=== PATIENT | female | born 1955 | race Caucasian/White ===

== ENCOUNTER → 2025-09-02 09:15 | Outpatient (REF) | payer BC, SELFPAY | LOC: RAD 09:15 | PROVIDERS: ATTENDING PHYSICIAN Thoracic Surgery (Cardiothoracic Vascular Surgery); FAMILY PHYSICIAN Family Medicine | DX: I35.0 Nonrheumatic aortic (valve) stenosis (principal) | CPT/HCPCS: 74174; 75572; Q9967 ==

== ENCOUNTER 2025-10-01 05:01 | Inpatient (IN) | payer BC, SELFPAY ==
[2025-09-27 12:23] VITALS: BMI 33.5
[2025-09-27 13:22] LABS: Hematocrit 38.2 % (37.0-47.0); Hemoglobin 13.4 g/dL (12.0-16.0); Mean Corp Hgb Conc. 35.1 g/dL (33.0-37.0); Mean Corpuscular Volume 90.5 fL (81.0-99.0); Nucleated Red Blood Cells % 0 %; Platelet Count 202 10^3/uL (130-400); Red Cell Dist. Width 11.8 % (11.5-14.5)
--- NOTE | 2025-09-27 13:23 | CM ---
Chart reviewed. Met with the patient in PAT. Reviewed preoperative and postoperative instructions and restrictions, along with showering guidelines. Gave patient 2 soaps. Patient is independent of ADLS, lives alone in a split level, 4 JAMES
through the front, 0 JAMES to enter through the garage, 0 DME. Patient has 2 supportive daughters. Plan is for the patient to return home with CT Transitional RN. CM to follow
[2025-09-27 13:31] LABS: INR 1.06; PT 13.9 Sec (11.4-14.6)
[2025-09-27 13:32] LABS: APTT 27.5 Sec (23.4-35.0)
[2025-09-27 14:10] LABS: Glycohemoglobin (HgbA1c) 5.8 % (4.0-5.9)
[2025-09-27 14:19] LABS: Urine Character Clear (Clear)
[2025-09-27 14:23] LABS: ALT (SGPT) 19 U/L (0-35); AST (SGOT) 21 U/L (14-36); Albumin 4.8 g/dl (3.5-5.0); Alkaline Phosphatase 73 U/L (38-126); Blood Urea Nitrogen 23 mg/dl (7-17); Calcium 8.8 mg/dl (8.4-10.2); Carbon Dioxide 26 mmol/L (22-30); Chloride 100 mmol/L (98-107); Estimated Creatinine Clearance 81 ml/min; Glucose 91 mg/dl (70-99); Potassium 3.9 mmol/L (3.5-5.1); Sodium 132 mmol/L (135-145); Total Protein 7.7 g/dl (6.3-8.2); eGFR > 60.00
[2025-09-27 15:10] LABS: Urine Squamous Cell >30 /LPF (Few)
[2025-09-27 15:11] LABS: Urine Red Blood Cell 0-2 /HPF (0-2); Urine White Cell 0-2 /HPF (0-5)
--- NOTE | 2025-09-30 22:42 | W.PN.CT ---
Assessment / Plan
-
Assessment:
-S/P Initial right thoracotomy done anteriorly with poor exposure and so converted to mini sternotomy J to the right at the third intercostal space/ Right common femoral artery and vein cutdown/ Surgical aortic valve replacement [25 mm biological
valve/Debridement of large calcium bar onto anterior leaflet of the mitral valve/Reconstruction of chest wall with multiple rib plates and wires, by Dr. Fraire, 10/01/2025, pod#1
-Bicuspid aortic valve morphology with severe stenosis and heavy calcification onto the mitral valve anterior
-LVEF 70-75%, per intraop DANIEL
-HTN
-Osteoporosis
-Class 1 obesity (BMI 33.5)
-Former tobacco use (quit 40 yrs ago)
-Macular degeneration
-Sinus bradycardia
-Hyponatremia
-S/P R wrist fx repair
-S/P Tonsillectomy
-Acute postop blood loss/Anemia (stable without transfusion)
-Acute postop atelectasis
-Acute postop hypovolemia with subsequent hypervolemia
Plan:
-No major issues overnight. Hemodynamically and neurologically intact
-Pt was successfully extubated yesterday 10/01/25 @ 1530
-Weaned off Levophed and Cardene gtt overnight, on insulin gtt per protocol. LR gtt @ 50 ml/hr discontinued @ 0500
-Last CI , MVO2 , U/O since OR mL
-Monitor chest tube drainage: R pleural , Med . CxR this AM look clear on my assessment, F/U official report
-Held Amiodarone last night d/t HR 50's
-Will hold AM dose of BB d/t bradycardia and postop hypotension
-Cont. current meds (ASA, Protonix )
-Mag oxide is 2.7, will hold mag oxide
-D/C'd swan and a-line this AM @ 0430
-Will d/c escoto catheter this AM @ 0600
-Will D/C insulin gtt today per protocol
-Maintain cordis
-Maintain temporary PW
-Encourage use of IS
-Wean off O2 as tolerated
-OOB into chair/Ambulate
Subjective
-
Date of Service: September 30, 2025
Objective Data
-
Lab Results
09/27/25 12:17
09/27/25 12:17
PT 13.9 Sec (11.4-14.6) 09/27/25 12:17
INR 1.06 09/27/25 12:17
APTT 27.5 Sec (23.4-35.0) 09/27/25 12:17
[2025-10-01] VITALS (16 sets, daily range): BP systolic 80–154; BP diastolic 45–87; BMI 32.5
[2025-10-01] MEDS: PROTONIX 40 MG PO (05:35)
[2025-10-01] MEDS: MAGNESIUM OXIDE 400 MG PO (05:35)
[2025-10-01] MEDS: BACTROBAN 2% OINTMENT 1 APPLIC NASAL ×2 (05:35→20:22)
[2025-10-01] MEDS: LOPRESSOR 12.5 MG PO (05:39)
--- NOTE | 2025-10-01 05:47 | PTCARENOTE ---
admitted pt into CVICU room 2263. pt confirmed 2 showers at home. pt clipped and prepped for CVOR. wiped w/ CHG wipes. pre-op meds given. pre-op education provided. pt confirmed taking losartan 09/30/[address] PA aware.
--- NOTE | 2025-10-01 06:02 | W.CVOR.SURPR ---
CVOR Surgeon Immed Pre Op
-
I have examined this patient prior to performance of the scheduled procedure.
The patient's condition is unchanged from the time of the dictated/written History and
Physical and the patient is able to undergo the scheduled procedure.
SAVR (biological)
[2025-10-01 07:40] LABS: ACT+ - POC 123 Seconds (82-134)
[2025-10-01 07:51] LABS: Urine Character Clear (Clear)
[2025-10-01 08:10] LABS: Urine White Cell 0-2 /HPF (0-5)
[2025-10-01 08:49] LABS: ACT+ - POC 584 Seconds (82-134)
[2025-10-01 09:07] LABS: B.E. - POC 0.3 mmol/L; Glucose - POC 132 mg/dl (70-99); HCO3 - POC 25 mmol/L (21-28); Hematocrit - POC 32 % PCV (37-47); Hemodilution- POC No; Hemoglobin Calculated - POC 10.8; Ionized Calcium - POC 1.13 mmol/L (1.15-1.33); Lactate - POC 0.63 mmol/L (0.36-0.75); O2 Saturation %Calculated-POC 98.3 % (94-98); PCO2 - POC 40 mmHg (35-48); PO2 - POC 111 mmHg (83-108); POC Comment PRE; Potassium - POC 3.3 mmol/L (3.5-5.1); Sodium - POC 140 mmol/L (136-145); Specimen Type - POC Arterial; pH - POC 7.40 (7.35-7.45)
[2025-10-01 09:17] LABS: ACT+ - POC 496 Seconds (82-134)
[2025-10-01 09:34] LABS: ACT+ - POC 531 Seconds (82-134)
[2025-10-01 09:43] LABS: B.E. - POC 5.0 mmol/L; Glucose - POC 156 mg/dl (70-99); HCO3 - POC 29 mmol/L (21-28); Hematocrit - POC 28 % PCV (37-47); Hemodilution- POC Yes; Hemoglobin Calculated - POC 9.4; Ionized Calcium - POC 1.05 mmol/L (1.15-1.33); Lactate - POC 0.79 mmol/L (0.36-0.75); O2 Saturation %Calculated-POC 100.0 % (94-98); PCO2 - POC 38 mmHg (35-48); PO2 - POC 434 mmHg (83-108); POC Comment CPB; Potassium - POC 3.6 mmol/L (3.5-5.1); Sodium - POC 140 mmol/L (136-145); Specimen Type - POC Arterial; pH - POC 7.49 (7.35-7.45)
[2025-10-01 09:57] LABS: B.E. - POC 3.5 mmol/L; Glucose - POC 132 mg/dl (70-99); HCO3 - POC 29 mmol/L (21-28); Hematocrit - POC 31 % PCV (37-47); Hemodilution- POC Yes; Hemoglobin Calculated - POC 10.5; Ionized Calcium - POC 1.04 mmol/L (1.15-1.33); Lactate - POC 1.40 mmol/L (0.36-0.75); O2 Saturation %Calculated-POC 99.6 % (94-98); PCO2 - POC 44 mmHg (35-48); PO2 - POC 175 mmHg (83-108); POC Comment CPB; Potassium - POC 4.0 mmol/L (3.5-5.1); Sodium - POC 141 mmol/L (136-145); Specimen Type - POC Arterial; pH - POC 7.42 (7.35-7.45)
[2025-10-01 10:02] LABS: ACT+ - POC 520 Seconds (82-134)
--- NOTE | 2025-10-01 10:22 | CM ---
Patient in OR today, chart reviewed. CM following.
[2025-10-01 10:28] LABS: ACT+ - POC 527 Seconds (82-134)
[2025-10-01 10:48] LABS: B.E. - POC 3.6 mmol/L; Glucose - POC 136 mg/dl (70-99); HCO3 - POC 28 mmol/L (21-28); Hematocrit - POC 30 % PCV (37-47); Hemodilution- POC Yes; Hemoglobin Calculated - POC 10.3; Ionized Calcium - POC 1.05 mmol/L (1.15-1.33); Lactate - POC 2.39 mmol/L (0.36-0.75); O2 Saturation %Calculated-POC 99.9 % (94-98); PCO2 - POC 39 mmHg (35-48); PO2 - POC 237 mmHg (83-108); POC Comment WARM; Potassium - POC 4.7 mmol/L (3.5-5.1); Sodium - POC 141 mmol/L (136-145); Specimen Type - POC Arterial; pH - POC 7.46 (7.35-7.45)
[2025-10-01 10:54] LABS: ACT+ - POC 129 Seconds (82-134)
[2025-10-01 11:15] LABS: B.E. - POC 2.5 mmol/L; Glucose - POC 170 mg/dl (70-99); HCO3 - POC 27 mmol/L (21-28); Hematocrit - POC 29 % PCV (37-47); Hemodilution- POC Yes; Hemoglobin Calculated - POC 9.7; Ionized Calcium - POC 1.20 mmol/L (1.15-1.33); Lactate - POC 1.56 mmol/L (0.36-0.75); O2 Saturation %Calculated-POC 98.0 % (94-98); PCO2 - POC 38 mmHg (35-48); PO2 - POC 99 mmHg (83-108); Potassium - POC 3.5 mmol/L (3.5-5.1); Sodium - POC 139 mmol/L (136-145); Specimen Type - POC Arterial; pH - POC 7.45 (7.35-7.45)
--- NOTE | 2025-10-01 11:21 | CON.INTV ---
Consultation
Consultation Request
Date/Time Consultation Requested: 10/01/2025 - 1055
Date/Time Consultation Performed: 10/01/2025 - 1116
Requesting Provider: REZA Herring
Performing Provider: Dr. Rodriguez
Reason for Consultation: s/p SAVR
Medical History
-
Chief Complaint: Elective SAVR
History of Present Illness:
69-year-old female with a past medical history of severe aortic valve stenosis who presents with elective surgical aortic valve replacement. Patient known to CT surgery service with last visit on 09/12/[address] Fraire. Her case was discussed at
a structural heart meeting and given her severe aortic valve stenosis with bicuspid valve morphology, an operative intervention is ideal. Recent echo performed on 08/21/2025 showed preserved LVEF at 60-65% with severe aortic valve stenosis with GABRIELLE
0.83 cm� with peak aortic valve gradient of 73.2 mmHg, and mean gradient 48.5 mmHg. Patient was recommended to have surgical intervention and she agreed to this procedure. Today, patient underwent surgical aortic valve replacement with 25 mm
biological valve as well as debridement of large calcium bar onto anterior leaflet of mitral valve. Patient tolerated the procedure well and transferred to CVICU postoperatively. Cloud Engineer service consulted for additional
management/recommendations.
When I saw the patient, she was intubated on SIMV at 14/500/40%/5, with PIP 24 cmH2O, breathing at 14 breaths/min with VTe 463 mL. Current heart rate 63, BP 106/55 via left radial A-line, PAP 27/15, saturating 96% and CO/CI: 3.08/1.66,
respectively. Currently on insulin drip at 2.6 units/hr. She has a mediastinal chest tube x 1 and right pleural chest tube x 1.
PMHx: Hypertension, osteoporosis, severe aortic stenosis, macular degeneration, obesity
PSHx: Right wrist fracture repair, tonsillectomy
Past Medical History
Past Medical History: Other (Above as per HPI)
Past Surgical History: Other (Above as per HPI)
Social History
Tobacco: Former Smoker (Quit >40 years ago)
Alcohol: None
Drug: None
Employment: Retired
Family History
Family History: Cancer (Father: Lung cancer; Sister: Breast cancer), Hypertension (Mother) and Other (Mother: History of CHF; Sister: A-fib)
Allergies / Home Medications
Allergies
Allergy/AdvReac Type Severity Reaction Status Date / Time
No Known Allergies Allergy Verified 09/25/25 12:26
Home Medications
�Medication �Instructions �Recorded �Confirmed �Last Taken �Type
calcium 3 units PO DAILY gummies 09/25/25 10/01/25 09/30/25 08:00 History
cholecalciferol (vitamin D3) 50 50 mcg PO DAILY Supplement 09/25/25 10/01/25 09/30/25 History
mcg (2,000 unit) tablet (Vitamin
D3)
hydrochlorothiazide 25 mg tablet 25 mg PO DAILY Blood Pressure 09/25/25 10/01/25 09/30/25 08:00 History
lorazepam 0.5 mg tablet 0.5 mg PO BID Mental Health/Anxiety 09/25/25 10/01/25 10/01/25 03:10 History
losartan 50 mg tablet 50 mg PO DAILY Blood Pressure 09/25/25 10/01/25 09/30/25 08:00 History
metoprolol tartrate 25 mg tablet 25 mg PO BID Blood Pressure 09/25/25 10/01/25 09/30/25 18:00 History
turmeric 3 unit PO DAILY gummies 09/25/25 10/01/25 08/31/25 History
vit C 250 mg-vit E 90 mg-zinc 40 1 tab PO BID Supplement 09/25/25 10/01/25 09/30/25 18:00 History
mg-copper 1 [id number]
capsule (PreserVision AREDS-2)
Review of Systems
-
Unable to Obtain full review of systems at this time due to: Patient Intubation
Vitals / Labs / Diagnostic Testing
Vital Signs
Temp Pulse Resp BP Pulse Ox
98.6 F 66 18 154/75 98
10/01/25 05:19 10/01/25 05:39 10/01/25 05:19 10/01/25 05:39 10/01/25 05:19
Microbiology
09/27/25 12:17 Nose MRSA Screen - Final
No Methicillin Resistant Staphylococcus aureus isolated.
Diagnostic Testing:
Physical Exam
-
HEENT: Normocephalic, Anicteric and Other (ETT in place)
Cardiovascular: S1/S2 and Peripheral Edema (negative)
Respiratory: Wheeze (negative), Rales (negative), Rhonchi (negative), Other (Mechanical breath sounds heard bilaterally) and Other (Mediastinal chest tube x 1+ right pleural chest tube x1)
GI: Soft, Non Distended, Non Tender and Normal Bowel Sounds
Neurology: Tremors (negative), Other (Sedated) and Other (Pupils +1 mm bilaterally)
Skin: Warm and Dry
General: Respiratory Distress (negative), Comfortable, Fever (negative) and Chills (negative)
Assessment
-
Assessment: 69-year-old female with a past medical history of severe aortic valve stenosis who presents with elective surgical aortic valve replacement. Patient known to CT surgery service with last visit on 09/12/[address] Fraire. Her case
was discussed at a structural heart meeting and given her severe aortic valve stenosis with bicuspid valve morphology, an operative intervention is ideal. Recent echo performed on 08/21/2025 showed preserved LVEF at 60-65% with severe aortic valve
stenosis with GABRIELLE 0.83 cm� with peak aortic valve gradient of 73.2 mmHg, and mean gradient 48.5 mmHg. Patient was recommended to have surgical intervention and she agreed to this procedure. On 10/01/2025, patient underwent surgical aortic valve
replacement with 25 mm biological valve as well as debridement of large calcium bar onto anterior leaflet of mitral valve. Patient tolerated the procedure well and transferred to CVICU postoperatively. Cloud Engineer service consulted for additional
management/recommendations.
Chronic conditions [employer] SU[employer]OCIATE: Hypertension, osteoporosis, severe aortic stenosis, macular degeneration, obesity
Impression:
#Severe aortic valve stenosis with bicuspid valve morphology s/p surgical aortic valve replacement with a 25 mm biological valve and debridement of large calcium bar onto anterior leaflet of mitral valve with chest wall reconstruction - POD #0
#Acute anemia due to above
#Hypocalcemia
#Hypertension
#Hyperglycemia (mild)
#History of osteoporosis
#History of macular degeneration
#Obesity (BMI: 32.5)
Plan:
Ventilator settings reviewed
FiO2 will be weaned to maintain SpO2 >90-94%
Minute ventilation will be adjusted
Arterial blood gases will be monitored
Spontaneous breathing trial will be attempted with hopeful extubation after anesthesia/sedation wear off
prn nebulized bronchodilators - not currently bronchospastic
Pulmonary artery catheter parameters will be followed
Pressors/antihypertensive/inotropes/diuretics will be provided as needed
Maintain MAP>65
Replete electrolytes with K>4, Mg>2
Monitor chest tube output (mediastinal chest tube x 1 and right pleural chest tube x 1)
Monitor hemoglobin
Monitor platelet count and coags
Transfuse blood products as needed to maintain Hb>7g/dL, plt>50k (given post-operative status)
CT surgery managing chest tubes
Monitor blood sugar to maintain euglycemia with goal BG 110-140; HbA1c: 5.8 on 09/27/2025
Insulin drip per protocol
Aspiration precautions
VAP prevention protocol
DVT prophylaxis
Early nutrition
Early mobilization
Critical care statement: A total of 43 minutes of critical care time was provided for this patient today. This includes management of ventilator, spontaneous breathing trial, arterial blood gases, pressors, of unstable vital signs, evaluation of the
patient at bedside, reviewing the patient's pertinent medical records including radiographs, microbiology, laboratory evaluations, and discussion with primary team and critical care nursing.
--- NOTE | 2025-10-01 11:47 | W.PN.CT.SURG ---
CT Surgery Operative Note
-
CARDIAC SURGERY OPERATIVE REPORT
Preoperative Diagnosis: Aortic valve stenosis with heavy calcification of bicuspid Valve morphology
Postoperative Diagnosis: Same
Procedure(s) Performed:
1. Initial right thoracotomy done anteriorly with poor exposure and so converted to mini sternotomy J to the right at the third intercostal space
2. Right common femoral artery and vein cutdown
3. Open Seldinger technique cannulation under DANIEL guidance
4. Surgical aortic valve replacement [25 mm biological valve
5. Debridement of large calcium bar onto anterior leaflet of the mitral valve
6. Reconstruction of chest wall with multiple rib plates and wires
7. Placement of temporary ventricular pacing wire
Date of Surgery: 10/01/2025
Comorbidities:
1. Bicuspid aortic valve morphology with severe stenosis and heavy calcification onto the mitral valve anterior
2. Hypertension
3. Osteoporosis
4. Macular degeneration
5. Obese with BMI of 32
Attending Surgeon: Alec Fraire MD, MS
Scrub and Circulating RNs: Jeannine Pimentel CT S Tech, Ten Dickerson, RN and Vin Choi RN
Assistants: Nyla Gallardo PA-C (exposure, retraction, suction), Brad Nunez MD (PGY2 resident, wound closure)
Anesthesiology: Flaco Oneill MD and Starr Alicea CRNA
Personnel Associate: Chucho Covington CCP
Anesthesia: GETA
EBL: per perfusion records
Products: None
CPB Time: 100 minutes
Aortic Cross Clamp Time: 58 minutes
Indication(s) for Procedures: This is a six 9-year-old female who is initially referred for TAVR consideration given her severe aortic valve stenosis. Her TAVR CT scan demonstrated bicuspid valve morphology as well as large calcium bar to extend
from the noncoronary cusp all way down through the annulus into the anteriorly for the mitral valve. Given her young age and low risk status, she is referred back for surgery as part of her lifetime management
Aortic Valve Description: Bicuspid aortic valve with left right effusion, large calcium bar that was down from the noncoronary cusps straight onto the anterior leaflet the mitral valve, left and right coronary ostia the normal anatomic positions.
Findings: Her left ventricular ejection fraction preoperatively was normal at 60% with no significant regional wall motion abnormalities. Following surgery her EF remained the same at 60% with no new regional wall motion abnormalities. I initially
attempted access via right thoracotomy at the third intercostal space done anteriorly and disarticulated the rib heads of the 2nd and 3rd ribs in order for exposure. Interestingly, although her CT scan demonstrated that her aorta was rightward he
is actually very far left underneath the sternum in vivo. Even performing a pericardiotomy with multiple stay sutures in order to pull the aorta towards the surgical field I felt it was not safe as it was poor exposure. I then abandoned this
technique and then converted to a mini upper sternotomy via a small incision. I then gained this towards the third intercostal space which was already exposed. The right internal mammary artery was also clipped multiple times for hemostasis. This
afforded much better exposure and the surgical aortic valve was implanted after resecting and debriding significant degree of calcium that extended onto the mitral valve. The field is then irrigated thoroughly. A total of 12 nonpledgeted 2
Ethibond sutures secured a [address]. There was a small gap between the core knots at the none right commissure and this was repaired with a 4-0 Prolene tied by hand. The aorta was closed in the usual fashion. At the conclusion
of the case, there was no significant paravalvular leak, and the intra valvular leak improved with blood pressure augmentation and by the end of the case there was a mean gradient 8 across the new surgical valve, normal leaflet excursion, and no
regurgitation. I then turned my attention to reconstructing the chest wall, after reapproximating the sternum I then used long plates with multiple screws in order to reapproximate the rib heads back to the anatomic positions. 19 Haitian Popeye
drains placed into the right hemithorax and a 24 Popeye drain into the pericardium. A single ventricular pacing wires placed at the base of the right ventricle earlier on in the case. She did not require any inotropic support, she maintained sinus
rhythm immediately after removing the cross-clamp, and she did not require any blood products.
Specimen(s): Aortic valve leaflets.
Prosthesis: 25 mm Chatterjee Insp[employer]'s Resilia aortic valve, serial #[id number], 2 long plates as well as multiple screws.
Description of Procedure: The patient was taken to the operating room. Their identity and procedure to be performed were verified and they were positioned supine on the operating table. Induction via general anesthesia with endotracheal intubation
was performed and central venous access and arterial monitoring were inserted. A preoperative transesophageal echocardiogram was performed to assess cardiac function and valvular function. The patient was then prepped and draped from chin to feet in
a sterile fashion. A preoperative time-out was performed with all members of the team present. I started with a small right common femoral artery exposure via a 2-1/2 to 3 cm incision after identifying the bifurcation with ultrasound. Pursestrings
were then placed onto the corresponding vein and artery. I then identified the second intercostal space then moved down 1 and entered via the third intercostal space anteriorly on the right. The second rib and third rib were disarticulated at the
rib heads using electrocautery and a soft tissue retractor was placed as well as a millimeter base of retractor. Full heparinization was given (a total of 55,000 units). Common femoral vein access was done under ultrasound guidance using open
Seldinger technique. Venous cannulation was done under DANIEL guidance. Both the artery and vein were accessed with serial dilations. The arterial cannula line had an appropriate bounce and correlating pressures with test dosing. The ACT was
confirmed to be over 400 and retrograde autologous priming was performed before commencing cardiopulmonary bypass. At this point a pericardiotomy was then created and multiple stay sutures were used to pull the pericardium over towards the incision
site at the right anterior thoracotomy. However there was still poor visualization of the ascending thoracic aorta and so I felt it was not safe to proceed to be at this access point. I then converted to a small upper midline incision and
performed a mini sternotomy down to the third intercostal space. This afforded much better exposure to the descending thoracic aorta. The pulmonary artery was away from the aorta to facilitate a clamp site and aortotomy. Next, a root
vent/antegrade cannula was inserted into the ascending aorta. Her anatomy was quite difficult for exposure and she had a very short stubby right superior pulmonary vein and so I elected to place a drop sucker once the aortotomy was performed for
exposure. The aortic cross-clamp was applied after decreasing the flow on the bypass and mean arterial pressure. A total of 1.2L initial dose of antegrade Del-Nido cardioplegia solution was given and planned for re-dosing every 75 minutes as
necessary. There was rapid electro-mechanical arrest of the heart at 400 cc of cardioplegia. The left ventricle was observed for distention on echocardiogram and manual palpation. Cold slush was placed into the pericardial well and cooled to 34
degrees centigrade.
Carbon dioxide was used to flood the field. We manually identified the location of the right coronary take off. An aortotomy was made approximately 2cm above the sinotubular junction. The location of both left and right coronary vessels were
visualized in the root.The leaflets were excised and sent for pathological assessment. The annulus was debrided of any calcium being mindful of the annulus and membranous septum. The root and left ventricular outflow tract were thoroughly irrigated
to remove any debris. A total of 12 Non-pledgeted 2-0 ethibond annular sutures were placed [id number] circumferentially. These were brought through the sewing cuff of the prosthetic valve which as then parachuted into place. The left and right
coronary ostia were visualized and were unobstructed by the valve. A Cor-Knot device was used to secure the annular sutures. I felt that there was too much of a gap between 2 of the core knot sutures towards the none right commissure and so 4-0
Prolene suture was placed here in order to obliterate that Which was hand tied the valve was inspected and was well seated. The aortotomy was approximated with 4-0 prolene in two layers. De-airing maneuvers were performed and temporary bipolar
ventricular pacing wires were placed on the base of the right ventricle. The patient was placed in a Trendelenburg position and flows on bypass were lowered. The aortic cross clamp was removed and flows were slowly brought back up. The aortotomy
appeared hemostatic. Transesophageal echocardiography revealed no paravalvular leak and appropriate prosthetic function. Once de-airing was satisfactory, the root vent was removed. After verifying acceptable parameters, we initiated weaning from
cardiopulmonary bypass. Once we were off cardiopulmonary bypass, the venous cannula was clamped and removed. The arterial line was then really located onto the venous line in order to return volume to the patient. Wires were then used to access
both the arterial and venous cannulas before cannulation or to maintain access. A test dose of protamine was administered and the patient was monitored for any adverse reaction before resuming protamine. Once half of the protamine dose was
delivered, pump suckers were turned off and the systolic blood pressure was lowered for aortic decannulation. The aortotomy suture line was inspected and hemostasis was confirmed. Mediastinal hemostasis was obtained. One 19Fr Popeye drain was placed
within the right pleural space and a 24 Haitian Popeye drain into the pericardial space. The sternum was approximated with 3 #7 single and the ribs were then reapproximated back onto the sternum over to the left side rib heads using long plates and
multiple screws. Fascia was approximated with #1 vicryl suture in an interrupted fashion. The subcutaneous, dermis and epidermis were closed in layers in a running fashion. The femoral cutdown was closed in multiple layers. The skin wound was
cleansed and dressed.
All instrument, sponge, and needle counts were confirmed to be correct x 2 at the end of the operation. The patient was transferred to the cardiac intensive care unit in critical but stable condition.
I, Dr. Alec Fraire, was present, scrubbed for, and performed all critical elements of this procedure.
Alec Fraire MD, MS
Cardiothoracic Surgeon
[facility]
This operative dictation was created using the [employer] dictation system. Please excuse any grammatical, typographical, or 'sound alike' errors
--- NOTE | 2025-10-01 11:58 | W.PN.CD ---
Addendum entered and electronically signed by Giovanny Ortega MD 10/01/25 17:39:
I saw and examined the patient independently and performed majority of MDM.
The FOURCHETTE SEWER's note was reviewed and I agree with the note with changes/additions below..
Comment: 69 yo female with PMH severe , HTN admitted for SAVR. s/p 25 mm Chatterjee Inspira's Resilia aortic valve by Dr. Fraire today. She is weaning from drips and vent. Exam with RRR, no murmurs, trace edema. EKG: sinus darius, prolonged QTc.
s/p bio-AVR. Plan will be ASA 81 mg daily.
Prolonged QTc. Suspect anesthesia effect. Repeat EKG in AM.
Original Note:
Today's Communication / Plan
-
Follow telemetry
Extubation per CT surgery
Impression / Plan
-
I/P: 69F with hypertension, hypercholesterolemia, obesity, nonobstructive CAD (trace in the ostium of the circumflex), and severe aortic stenosis presents for mini bio AVR. Given her young age and calcium pattern on her AV with bicuspid morphology
the plan was for SAVR versus TAVR.
Primary environmental health safety manager: Dr. Lomeli
Bicuspid aortic valve with severe stenosis s/p SAVR (25 mm Chatterjee Inspira's Resilia aortic valve) by Dr. Fraire on 10/01/2025
- Pre-LVEF 60% without RWMA, unchanged postop, MG 8 mmHg
- On Levophed
- EKG sinus bradycardia with prolonged QT, EKG in a.m.
- Antibiotic prophylaxis instructions during hospitalization
CAD, nonobstructive (trace in the ostium of the circumflex), LDL 131 in 2023, not on statin therapy
Hypertension, resume medical management as able postoperatively
Former tobacco use, full cessation recommended
SUBJECTIVE:
Operative notes reviewed. Intubated and sedated.
Physical Exam
Vital Signs/Labs
Vital Signs
Temp Pulse Resp BP Pulse Ox
98.6 F 66 18 154/75 98
10/01/25 05:19 10/01/25 05:39 10/01/25 05:19 10/01/25 05:39 10/01/25 05:19
09/30/25 10/01/25 10/02/25
06:59 06:59 06:59
Actual Weight 183 lb 10.321 oz
PT 13.9 Sec (11.4-14.6) 09/27/25 12:17
INR 1.06 09/27/25 12:17
APTT 27.5 Sec (23.4-35.0) 09/27/25 12:17
Physical Exam
Constitutional: No acute distress and Comfortable
EENT: Anicteric and Moist mucous membranes
Cardiovascular: Rhythm & rate is regular, Pedal edema is absent and S1S2 is normal
Respiratory: Lungs clear to auscul. and Other (Mechanical ventilation)
GI: Soft, Distention absent and Flat
Neuro/Psych: Other (Sedated)
Other: Skin (Warm and dry without edema)
Data Reviewed
-
Date of Service: October 01, 2025
EKG: Report Reviewed by me
Labs: Labs Reviewed by me
Old Records: Reviewed
[2025-10-01] MEDS: DILAUDID 0.5 MG IV ×2 (12:05→16:09)
--- NOTE | 2025-10-01 12:08 | W.PN.UPDATE ---
Update Note
Progress Note Update
69 y/o female presents elective for a AVR with Dr. Fraire
NEURO: sedated on precedex, pupils +4mm B/L
RESP: #8OT @26cm> 14/500/40/5 Lungs clear B/L. 2 mediastinal (20cc on arrival) and L pleural (0cc on arrival) chest tubes to -20cm suction. Sanguineous drainage
CV: RRR +S1, S2, no S3, no rub, no murmur. Dermabond to median sternotomy. RIJ w/[place]
ABD: round, soft, no BS
EXT: no edema, +2/4 DP pulses B/L, no femoral bruit, left radial A-line intact
: Lopez with clear yellow urine
A/P: POD #0 s/p Surgical aortic valve replacement [25 mm biological valve]
DANIEL: EF EF 70 to 75%
- wean and extubate
- Monitor CT and urine output
- Follow up labs and CXR
- Wean levophed for maps >65/SBP goal 90-110
>>can start cardene as needed for blood pressure management
- Will start ASA tonight
- EKG currently showing sinus bradycardia
- Cards consulted
- will need instruction regarding antibiotic prophylaxis for dental and invasive procedures
# acute surgical blood loss anemia-expected
- trend CBC
[2025-10-01] MEDS: VERSED 0.5 MG IV ×4 (12:09→12:54)
[2025-10-01 12:12] LABS: Glucose - Point of Care 136 mg/dl (70-99)
[2025-10-01 12:19] LABS: B.E. 3.0 mmol/L; HCO3 27.0 mmol/L (21-28); O2 Saturation % 98.5 % (94-98); PCO2 38 mmHg (32-35); PO2 89 mmHg (83-108); Potassium 4.0 mMOL/L (3.5-5.1); Sodium 137 mMOL/L (136-145)
[2025-10-01 12:29] LABS: INR 1.72; PT 20.3 Sec (11.4-14.6)
[2025-10-01 12:30] LABS: APTT 28.4 Sec (23.4-35.0)
[2025-10-01 12:31] LABS: Hematocrit 29.1 % (37.0-47.0); Hemoglobin 10.4 g/dL (12.0-16.0); Platelet Count 136 10^3/uL (130-400)
[2025-10-01 12:33] LABS: Blood Urea Nitrogen 20 mg/dl (7-17); Estimated Creatinine Clearance 80 ml/min; Glucose 123 mg/dl (70-99); Magnesium 2.7 mg/dl (1.6-2.3)
[2025-10-01] MEDS: DILAUDID 0.25 MG IV ×2 (12:38→18:14)
[2025-10-01] MEDS: CALCIUM GLUCONATE 100 IV (12:40)
[2025-10-01] MEDS: ANCEF 10 IV ×2 (12:41→12:42)
[2025-10-01] MEDS: NSS 500 IV (12:41)
[2025-10-01 13:05] LABS: Glucose - Point of Care 150 mg/dl (70-99)
--- NOTE | 2025-10-01 13:06 | PTCARENOTE ---
Patient received from [facility] at 1155; Sedated and intubated; SB with prolonged QT on monitor; VSS; Epicardial V wire present with settings VVI 50/10/0.8; +1 DP and radial pulses present; Lungs diminished at bases; ETT size 7.5 positioned and secured
at 25 cm at right lip - adjusted by CVNP Michelle C. at bedside to 23 cm at right lip following CXR; Ventilator settings SIMV 500/14/5/5 FiO2 40%; CTx2 to -20 cm wall suction draining bloody drainage - no air leak, tidaling, or crepitus noted;
Hypoactive BS; Lopez catheter in place draining clear, yellow urine; Sternal midline incision glued and approximated - CANDELARIO, Right chest incision glued and approximated - CANDELARIO; Left radial A-line in place, [place] Johnny present in CAJ Cordis at 45 cm -
all lines zeroed and leveled; PIVx1 - #20 RAC; Levo, insulin, and precedex infusing - see nursing flowsheets for further details; iCal repleted x1; IV Dilaudid and IV Versed given accordingly for pain; see nursing documentation for further details.
CO: 3.70
CI: 1.99
SVR: 1,297
[2025-10-01] MEDS: LR 250 ML IV ×3 (13:49→15:17)
[2025-10-01 14:05] LABS: Glucose - Point of Care 123 mg/dl (70-99)
--- NOTE | 2025-10-01 14:35 | PTCARENOTE ---
RT in room and patient placed on CPAP breathing trial. ABG's due at 1500
[2025-10-01 14:59] LABS: Glucose - Point of Care 91 mg/dl (70-99)
[2025-10-01 15:09] LABS: B.E. - POC 0.5 mmol/L; Blood Urea Nitrogen - POC 19 mg/dl (3-120); Chloride - POC 105 mmol/L (96-111); Creatinine - POC 0.80 mg/dl (0.3-1.0); Glucose - POC 77 mg/dl (70-99); HCO3 - POC 26 mmol/L (21-28); Hematocrit - POC 31 % PCV (37-47); Hemodilution- POC Yes; Hemoglobin Calculated - POC 10.6; Ionized Calcium - POC 1.29 mmol/L (1.15-1.33); Lactate - POC 1.51 mmol/L (0.36-0.75); O2 Saturation %Calculated-POC 92.7 % (94-98); PCO2 - POC 43 mmHg (35-48); PO2 - POC 67 mmHg (83-108); Potassium - POC 3.7 mmol/L (3.5-5.1); Sodium - POC 143 mmol/L (136-145); Specimen Type - POC Arterial; pH - POC 7.39 (7.35-7.45)
--- NOTE | 2025-10-01 15:23 | PTCARENOTE ---
EPOC ABG reviewed with YOEL Rapp; RT at bedside; Patient extubated at 1515 and placed on 6L NC
[2025-10-01] MEDS: OFIRMEV 100 IV (15:31)
[2025-10-01] MEDS: NEURONTIN PO ×2 (15:55→15:57)
[2025-10-01] MEDS: VITAMIN D3 (cholecalciferol) PO (15:56)
[2025-10-01] MEDS: TYLENOL PO (15:56)
[2025-10-01] MEDS: PACERONE PO (15:57)
--- NOTE | 2025-10-01 15:59 | RESPNOTE ---
pt extubated to 6L nasal cannula at 1515.
[2025-10-01 16:03] LABS: Glucose - Point of Care 80 mg/dl (70-99)
[2025-10-01 16:08] LABS: Hematocrit 29.9 % (37.0-47.0); Hemoglobin 10.5 g/dL (12.0-16.0); Platelet Count 140 10^3/uL (130-400)
[2025-10-01] MEDS: KCL 50 IV ×2 (17:03→18:07)
[2025-10-01] MEDS: ANCEF 5 IV (17:03)
[2025-10-01] MEDS: LOW STRENGTH ASPIRIN 81 MG PO (17:03)
[2025-10-01 17:04] LABS: Glucose - Point of Care 121 mg/dl (70-99)
[2025-10-01 18:06] LABS: Glucose - Point of Care 116 mg/dl (70-99)
[2025-10-01] MEDS: LR 1000 IV (18:08)
[2025-10-01] MEDS: ALBUMIN 5% 250 IV (18:15)
[2025-10-01 20:10] LABS: Glucose - Point of Care 86 mg/dl (70-99)
[2025-10-01] MEDS: CALCIUM GLUCONATE 130 MG IV (20:21)
[2025-10-01] MEDS: SENOKOT 8.6 MG PO (20:21)
[2025-10-01] MEDS: ROXICODONE 5 MG PO (20:21)
--- NOTE | 2025-10-01 20:57 | PTCARENOTE ---
Assumed care of pt from dayshift RN. Walking rounds completed. Pt AAOx4. FARNSWORTH. Appropriate. Sinus darius on the tele monitor. HR 50s. Temporary epicardial v-wire intact, box on, wire unplugged and wrapped around box. Settings as documented. BPs
stable, 90-100s/40-50s. Intermittent low dose levo. CVP ~2-6. PAPs 30s/10s. CI>2. Trace b/l LE edema. Palpable pulses throughout. Pt on 4 L NC. POX 95-97%. Mediastinal CT and R pleural CT intact, to -20 suction, no airleaks noted, and output
appropriate. Lung sounds audible and diminished in the bases. Abdomen round. +BSx4. Lopez catheter intact and draining yellow urine. All surgical sites stable, approximated, and CANDELARIO. Right IJ cordis w/ swan, left radial a-line, and PIV x1 intact.
All lines leveled/zeroed/flushed. 3g calcium gluconate - see MAR. Pt repositioned as documented. Glycemic protocol followed. Maintenance LR @50 ml/hr. See worklist for full nursing assessment and interventions. See MAR for pain medication
administration. Call mcmahon within reach.
[2025-10-01] MEDS: NEURONTIN 100 MG PO (21:42)
[2025-10-01] MEDS: TYLENOL 975 MG PO (21:42)
[2025-10-01 21:59] LABS: Glucose - Point of Care 116 mg/dl (70-99)
[2025-10-02] VITALS (24 sets, daily range): BP systolic 80–121; BP diastolic 43–84; PULSE 71; O2SAT 91–92; BMI 33.6
[2025-10-02 00:11] LABS: Glucose - Point of Care 93 mg/dl (70-99)
[2025-10-02] MEDS: ULTRAM 25 MG PO ×2 (00:15→06:48)
--- NOTE | 2025-10-02 00:20 | PTCARENOTE ---
Pt reassessed. Remains sinus darius on the tele monitor. HR high 50s. No change in v-wire. BPs 90-100/40s. Maps low - CT JUAN aware, titrate based on SBP's. CVP ~6. PAPs 30s/10s. CI>2. Pt on 4 L NC. POX 92-94%. Mediastinal CT/R pleural CT assessment
unchanged, output as documented. Lopez catheter intact and draining yellow urine. All lines leveled/zeroed/flushed. All surgical sites stable. Repositioned as documented. Glycemic protocol followed. LR maintenance fluids maintained. See MAR for pain
medication administration. Ultram added. Call mcmahon within reach.
[2025-10-02] MEDS: ANCEF 5 IV ×2 (01:04→09:56)
[2025-10-02 02:08] LABS: Glucose - Point of Care 101 mg/dl (70-99)
--- NOTE | 2025-10-02 03:37 | PTCARENOTE ---
No acute changes in assessment. Pt is sinus darius to sinus rhythm on the tele monitor. HR 50-60s. BP stable 90-110s/40-50s. CVP ~6. PAPs 30s/teens. CI>2. Pt on 4 L NC. POX 92-97%. Mediastinal CT and R pleural CT assessment unchanged, output
appropriate. Lopez catheter intact and draining yellow urine. All lines leveled/zeroed/flushed. Repositioned as documented. Labs drawn and sent. EKG complete. Pt states pain is under control at this time. Glycemic protocol followed. LR infusion
maintained. Call mcmahon within reach.
[2025-10-02 03:42] LABS: INR 1.31; PT 16.4 Sec (11.4-14.6)
--- NOTE | 2025-10-02 03:52 | W.PN.CT ---
Today's Communication / Plan
-
Plan:
-No major issues overnight. Hemodynamically and neurologically intact
-Pt was successfully extubated yesterday 10/01/25 @ 1530
-Weaned off Levophed and Cardene gtt overnight, on insulin gtt per protocol. LR gtt @ 50 ml/hr discontinued @ 0600
-Last CI 3.65, MVO2 65.1%, U/O since OR 925 mL
-Monitor chest tube drainage: R pleural 60/100, 1Med 120/235. CxR this AM look clear mild bibasilar atelectasis on my assessment, F/U official report
-Held Amiodarone last night d/t HR 50's. Will keep on hold today
-Will hold AM dose of BB d/t bradycardia and postop hypotension
-Cont. current meds (ASA, Protonix )
-D/C'd swan and a-line this AM @ 0500
-D/C escoto catheter this AM @ 0600
-Will D/C insulin gtt today per protocol
-Maintain cordis
-Maintain temporary PW
-Encourage use of IS
-Wean off O2 as tolerated
-OOB into chair/Ambulate
Assessment / Plan
-
Assessment:
-S/P Initial right thoracotomy done anteriorly with poor exposure and so converted to mini sternotomy J to the right at the third intercostal space/ Right common femoral artery and vein cutdown/ Surgical aortic valve replacement [25 mm biological
valve/Debridement of large calcium bar onto anterior leaflet of the mitral valve/Reconstruction of chest wall with multiple rib plates and wires, by Dr. Fraire, 10/01/2025, pod#1
-Bicuspid aortic valve morphology with severe stenosis and heavy calcification onto the mitral valve anterior
-LVEF 70-75%, per intraop DANIEL
-HTN
-Osteoporosis
-Class 1 obesity (BMI 33.5)
-Former tobacco use (quit 40 yrs ago)
-Macular degeneration
-Sinus bradycardia
-Hyponatremia
-S/P R wrist fx repair
-S/P Tonsillectomy
-Acute postop blood loss/Anemia (stable without transfusion)
-Acute postop thrombocytopenia (stable without active bleed)
-Acute postop atelectasis
-Acute postop hypovolemia with subsequent hypervolemia
Discussed patient care with: Cardiology, Nursing, Respiratory Therapy, Pharmacy and Care Team
Subjective
Procedure
S/P Initial right thoracotomy done anteriorly with poor exposure and so converted to mini sternotomy J to the right at the third intercostal space/ Right common femoral artery and vein cutdown/ Surgical aortic valve replacement [25 mm biological
valve/Debridement of large calcium bar onto anterior leaflet of the mitral valve/Reconstruction of chest wall with multiple rib plates and wires, by Dr. Fraire, 10/01/2025
-
Date of Service: October 02, 2025
Pt c/o incisional pain, otherwise feels well
Objective Data
-
PT 16.4 Sec (11.4-14.6) H 10/02/25 03:12
INR 1.31 10/02/25 03:12
APTT 28.4 Sec (23.4-35.0) 10/01/25 12:13
Vital Signs
Vital Signs
Temp Pulse Resp BP Pulse Ox
99.2 F 63 22 102/43 93
10/02/25 03:00 10/02/25 03:00 10/02/25 03:00 10/02/25 03:00 10/02/25 03:00
CT Intake/Output/Weight
10/01/25 10/01/25 10/02/25
06:59 18:59 06:59
Intake Total 1753.4 / 2491.6 738.2 / 2491.6
Output Total 600 / 1105 505 / 1105
Balance 1153.4 / 1386.6 233.2 / 1386.6
SaO2: 93 (2L)
Physical Exam
-
General: Awake, Oriented and AOx3
Cardiovascular: Regular rate & rhythm, No Murmurs, No Rub and No Gallop
Respiratory: Decreased Breath Sounds (at bases, otherwise clear)
Sternum: Stable
Incision: Clean, Dry, Intact and Dressing Intact
Extremities: Other (+trace edema)
Data Reviewed
-
Lab Results: Results Reviewed
Medications: Active Meds Reviewed
Chest X-Ray: Report Reviewed and Image Reviewed
ECG: Report Reviewed and Image Reviewed
[2025-10-02 04:01] LABS: Hematocrit 26.5 % (37.0-47.0); Hemoglobin 9.1 g/dL (12.0-16.0); Mean Corp Hgb Conc. 34.3 g/dL (33.0-37.0); Mean Corpuscular Volume 92.3 fL (81.0-99.0); Platelet Count 112 10^3/uL (130-400); Red Cell Dist. Width 11.9 % (11.5-14.5)
[2025-10-02 04:05] LABS: Blood Urea Nitrogen 22 mg/dl (7-17); Calcium 9.1 mg/dl (8.4-10.2); Carbon Dioxide 26 mmol/L (22-30); Chloride 108 mmol/L (98-107); Estimated Creatinine Clearance 80 ml/min; Glucose 84 mg/dl (70-99); Magnesium 2.1 mg/dl (1.6-2.3); Potassium 4.2 mmol/L (3.5-5.1); Sodium 137 mmol/L (135-145); eGFR > 60.00
[2025-10-02 04:06] LABS: Glucose - Point of Care 97 mg/dl (70-99)
[2025-10-02] MEDS: FLEXERIL 5 MG PO ×2 (04:12→13:21)
[2025-10-02] MEDS: TYLENOL 975 MG PO ×3 (05:49→21:15)
[2025-10-02 06:05] LABS: Glucose - Point of Care 89 mg/dl (70-99)
--- NOTE | 2025-10-02 07:25 | W.PN.ANS.POP ---
Anesthesia Post Operative
- Anesthesia Post Op Note
Vital Signs Stable-See Nursing Note: Yes
Airway Patent: Yes
Adequate Pain Control: Yes
Change in Mental Status: No
Current Postoperative Nausea & Vomiting: No
Anesthesia Complications: No
General Anesthetic Recall: No
Unplanned Admission: No
Post Op Hydration Adequate: Yes
- -
Selected Entries
10/02/25
07:04 10/02/25
07:05
Pulse 67
Blood pressure 113/55
MAP (cuff-Jeimy Monitor) 72
SaO2 94
[2025-10-02 08:05] LABS: Glucose - Point of Care 111 mg/dl (70-99)
--- NOTE | 2025-10-02 08:05 | W.PN.INTV ---
Today's Communication / Plan
Recommendations
Postoperative management as per CT surgery team
Removal of chest tubes per CT surgery team
Insulin drip being stopped this morning
Encourage incentive spirometer use
Pain control
Goal BG 110�140
Patient to be downgraded to CVICU-telemetry status. No additional recommendations at this time. Iron Installer/Pulmonary service will now sign off. Please reconsult if there are any additional questions/concerns, or if patient's respiratory status
deteriorates.
Assessment
-
Assessment: 69-year-old female with a past medical history of severe aortic valve stenosis who presents with elective surgical aortic valve replacement. Patient known to CT surgery service with last visit on 09/12/[address] Fraire. Her case
was discussed at a structural heart meeting and given her severe aortic valve stenosis with bicuspid valve morphology, an operative intervention is ideal. Recent echo performed on 08/21/2025 showed preserved LVEF at 60-65% with severe aortic valve
stenosis with GABRIELLE 0.83 cm� with peak aortic valve gradient of 73.2 mmHg, and mean gradient 48.5 mmHg. Patient was recommended to have surgical intervention and she agreed to this procedure. On 10/01/2025, patient underwent surgical aortic valve
replacement with 25 mm biological valve as well as debridement of large calcium bar onto anterior leaflet of mitral valve. Patient tolerated the procedure well and transferred to CVICU postoperatively. Iron Installer service consulted for additional
management/recommendations.
Chronic conditions ASSOCIATE CONSULTING ENGINEER: Hypertension, osteoporosis, severe aortic stenosis, macular degeneration, obesity
Impression:
#Severe aortic valve stenosis with bicuspid valve morphology s/p surgical aortic valve replacement with a 25 mm biological valve and debridement of large calcium bar onto anterior leaflet of mitral valve with chest wall reconstruction - POD #1
#Acute anemia due to above
#Hypocalcemia
#Hypertension
#Hyperglycemia (mild)
#History of osteoporosis
#History of macular degeneration
#Obesity (BMI: 32.5)
Plan:
Patient successfully extubated to nasal cannula on 10/01, and is currently on 2 L/min nasal cannula breathing comfortably, although she does have chest discomfort (postoperative)
Wean down supplemental O2 as tolerated well maintaining SpO2 >90-94%
prn nebulized bronchodilators - not currently bronchospastic
Encourage incentive spirometer use q1hr while awake
Pulmonary artery catheter parameters will be followed
Pressors/antihypertensive/inotropes/diuretics will be provided as needed
Maintain MAP>65
Replete electrolytes with K>4, Mg>2
Monitor chest tube output (mediastinal chest tube x 1; right pleural chest tube x 1 to be removed today)
Monitor hemoglobin
Monitor platelet count and coags
Transfuse blood products as needed to maintain Hb>7g/dL, plt>50k (given post-operative status)
CT surgery managing chest tubes
Monitor blood sugar to maintain euglycemia with goal BG 110-140; HbA1c: 5.8 on 09/27/2025
Insulin drip per protocol - to be stopped today
Aspiration precautions
DVT prophylaxis
Early nutrition
Early mobilization
Insulin drip to be stopped today and then patient to be downgraded to CVICU-telemetry status. No additional recommendations at this time. Iron Installer/Pulmonary service will now sign off. Thank you for allowing us to be involved in the care of
this patient. Please reconsult if there are any additional questions/concerns, or if patient's respiratory status deteriorates.
Total time spent today was 61 minutes for this encounter. Time includes reviewing laboratory test/imaging results, reviewing pertinent medical records, obtaining and reviewing medical history, performing an appropriate exam, ordering medications,
tests and procedures. Time also includes documentation of this encounter, coordinating patient care and communicating with other healthcare professionals. Total time does not include separately billed tests performed on this date of service.
Subjective Dataa
Subjective Data
Date of Service:
Date of Service: October 02, 2025
Chief Complaint: Iron Installer Follow Up
Subjective:
Patient seen this morning. Complaining of chest discomfort. Heart rate 71, BP 182/83 and she is currently on 2 L/min nasal cannula breathing comfortably. Afebrile overnight.
Review of Systems
General: Other (Negative unless mentioned above)
Objective Data
Data Reviewed
Vital Signs / I&O / Oxygen:
Vital Signs
Temp Pulse Resp BP Pulse Ox
98.5 F 63 18 116/57 97
10/02/25 08:00 10/02/25 09:00 10/02/25 09:00 10/02/25 09:00 10/02/25 09:00
Intake and Output
10/01/25 10/02/25 10/03/25
06:59 06:59 06:59
Intake Total 2724.5 / 2734.9 45.2 / 45.2
Output Total 1260 / 1345 130 / 130
Balance 1464.5 / 1389.9 -84.8 / -84.8
SaO2 [CPAP/PSV] 93
SaO2 [SIMV] 92
SaO2 97
Nasal Cannula flow liters per 4
minute
Physical Exam
General: Respiratory Distress (negative), Comfortable, Chills (negative) and Sweats (negative)
HEENT: Normocephalic and Anicteric
Cardiovascular: S1-S2 and Peripheral Edema (Trace lower extremity edema bilaterally)
Respiratory: Wheeze (negative), Crackles (Bibasilar), Rhonchi (negative) and Non-Labored Respirations
GI: Soft, Non Distended, Non Tender and Normal Bowel Sounds
Neurology: Awake, Alert, Oriented and Tremors (negative)
Skin: Warm, Dry, Cyanosis (negative) and Jaundice (negative)
Labs/Micro/Reports
Lab Data
10/02/25 03:12
10/02/25 03:12
Laboratory Results
10/01/25 10/01/25 10/02/25
12:13 12:14 03:12
PT 20.3 H 16.4 H
INR 1.72 1.31
APTT 28.4
pH 7.46 H
pCO2 38 H
pO2 89
HCO3 27.0
O2 Delivery Level
[2025-10-02] MEDS: LIDOCAINE 4% PATCH 1 PATCH TOPICAL (08:26)
[2025-10-02] MEDS: DILAUDID 0.5 MG IV ×2 (08:26→19:01)
[2025-10-02] MEDS: SENOKOT 8.6 MG PO ×2 (08:27→21:16)
[2025-10-02] MEDS: LOW STRENGTH ASPIRIN 81 MG PO (08:27)
[2025-10-02] MEDS: BACTROBAN 2% OINTMENT 1 APPLIC NASAL ×2 (08:27→21:14)
[2025-10-02] MEDS: NEURONTIN 100 MG PO ×3 (08:27→21:16)
[2025-10-02] MEDS: VITAMIN D3 (cholecalciferol) 50 MCG PO (08:27)
[2025-10-02] MEDS: LOPRESSOR 12.5 MG PO ×2 (08:27→21:16)
[2025-10-02] MEDS: MAGNESIUM OXIDE 400 MG PO ×2 (08:27→21:16)
[2025-10-02] MEDS: PROTONIX 40 MG PO (08:27)
--- NOTE | 2025-10-02 08:45 | PTCARENOTE ---
Assumed care of patient at 0700. Pt is awake, alert, and oriented. Pt with complaints of pain, PRN pain medications administered. Pt remains SR with HR 60's. BP 107/50 MAP 67. Pulse oximetry 97% on 4L nasal cannula. Encouraged use of incentive
spirometer, currently achieving 500. Mediastinal chest tube and right pleural chest tube in place to -20 suction, no sign of air leak or crepitus. Pt tolerating PO. Due to void. Mini midsternal incision approximated and ENVIRONMENTAL FIELD OFFICE MANAGER. Right chest incision and
right groin incision approximated and CANDELARIO. Right IJ cordis in place with KVO. Pt remains on insulin gtt per glycemic protocol. Pt currently OOB in chair with call mcmahon within reach.
--- NOTE | 2025-10-02 09:21 | W.PN.CD ---
Today's Communication / Plan
-
Not ready for diuretics.
Pain/chest tube management per CTS.
Incentive spirometry.
Ambulation as tolerated.
Start atorvastatin 40 mg daily. Goal LDL < 55.
Impression / Plan
-
Impression/Plan: 69F with hypertension, hypercholesterolemia, obesity, nonobstructive CAD (trace in the ostium of the circumflex), and severe aortic stenosis presents for mini bio AVR.
Primary citrus fruit colorer: Dr. Lomeli
#Bicuspid aortic valve with severe stenosis
-Chronic, progressive.
-s/p SAVR (#25 Chatterjee Inspiris Resilia aortic valve) by Dr. Fraire on 10/01/2025.
-Pre-LVEF 60% without RWMA, unchanged postop, MG 8 mmHg.
-Cautious continuation on metoprolol.
-Some hypotension. Not ready for diuretics.
-Pain/chest tube management per CT surgery.
-Incentive spirometry.
-Ambulation.
#CAD
-Chronic, nonobstructive (trace in the ostium of the circumflex).
-Aggressive primary prevention including metoprolol, losartan. Start atorvastatin 40 mg daily. Goal LDL < 55.
#Hypertension
-Chronic, currently occasionally hypotensive.
-Resume medical management as hemodynamics will permit.
#Former tobacco use
-Chronic, full cessation recommended.
Subjective/Interval History:
Extubated post op.
[place]/Lopez discontinued.
Sinus darius overnight with some hypotension requiring intermittent norepinephrine.
Weight is up 2.8 kg (83.3 --> 86.1).
SaO2 = 97% on 4LNC.
Frequent PVC's.
Patient is having significant MSK post operative pain.
DATA:
SAVR, 10/01/2025:
Procedure(s) Performed:
1. Initial right thoracotomy done anteriorly with poor exposure and so converted to mini sternotomy J to the right at the third intercostal space
2. Right common femoral artery and vein cutdown
3. Open Seldinger technique cannulation under DANIEL guidance
4. Surgical aortic valve replacement [25 mm biological valve
5. Debridement of large calcium bar onto anterior leaflet of the mitral valve
6. Reconstruction of chest wall with multiple rib plates and wires
7. Placement of temporary ventricular pacing wire
Physical Exam
Vital Signs/Labs
Vital Signs
Temp Pulse Resp BP Pulse Ox
36.9 C 60 18 113/55 97
10/02/25 08:00 10/02/25 08:00 10/02/25 08:00 10/02/25 07:04 10/02/25 08:30
09/30/25 10/01/25 10/02/25
11:59 11:59 11:59
Actual Weight 83.3 kg 86.1 kg
10/02/25 03:12
10/02/25 03:12
PT 16.4 Sec (11.4-14.6) H 10/02/25 03:12
INR 1.31 10/02/25 03:12
APTT 28.4 Sec (23.4-35.0) 10/01/25 12:13
Magnesium 2.1 mg/dl (1.6-2.3) 10/02/25 03:12
Physical Exam
Constitutional: Distress (Visibly uncomfortable.)
EENT: Anicteric and Moist mucous membranes
Cardiovascular: Rhythm & rate is regular, Pedal edema is absent, JVD pressure is normal, S1S2 is normal and Murmur/rub/gallop absent
Respiratory: Respiratory effort normal (Normal though shallow due to pain.) and Other (Decreased throughout.)
GI: Soft, Distention absent, Flat, Non tender and Normal bowel sounds
Neuro/Psych: AO x 3
Data Reviewed
-
Date of Service: October 02, 2025
Medical Decision Making: Reviewed Test Results, Independent Historian Assessment and Test Interpretation
EKG: Tracing Personally Visualized and interpreted and Report Reviewed by me
Echo: Report Reviewed by me
X-Ray/CT/US/MRI/NUC/PET: Image Personally Visualized and interpreted and Report Reviewed by me
Labs: Labs Reviewed by me
Old Records: Reviewed
[2025-10-02] MEDS: ANESTHETIC LOZENGE 1 LOZENGE PO (09:56)
[2025-10-02] MEDS: REFRESH EYE DROPS (PF) 1 DROPS OPHTH (09:56)
[2025-10-02 10:02] LABS: Glucose - Point of Care 84 mg/dl (70-99)
[2025-10-02] MEDS: NSS IV (10:02)
[2025-10-02] MEDS: ULTRAM 50 MG PO ×2 (10:40→18:03)
--- NOTE | 2025-10-02 11:00 | PTCARENOTE ---
Pt worked with cardiac rehab. Initially BP 96/59 MAP 71. After standing pt reported to feel dizzy, repeat BP 80/52 MAP 63. Pt assisted back to bed BP 110/[address] JUAN, Michelle, made aware. Right pleural chest tube d/c'd per order. Currently pulse
oximetry 96% on 2L nasal cannula. Pt resting in bed with daughter at bedside.
[2025-10-02 12:06] LABS: Glucose - Point of Care 120 mg/dl (70-99)
[2025-10-02] MEDS: ATIVAN 0.5 MG PO ×2 (13:22→21:16)
[2025-10-02] MEDS: TORADOL 15 MG IV ×2 (13:55→22:08)
--- NOTE | 2025-10-02 14:05 | PTCARENOTE ---
Pt with increased pain. PRN Toradol administered. Pt with increasing anxiety and increasing SOB. Pt reports taking Ativan at home BID, CT JUAN Michelle aware and placed order. Administered Ativan. Pt requesting to get back in bed. Was able to void on
commode prior to getting in bed. Once in bed pt with increasing SOB, pulse oximetry 88% on 2L nasal cannula. Increased to 8L, pulse oximetry 92%. CT JUAN made aware. Portable chest x-ray obtained.
[2025-10-02] MEDS: LASIX 20 MG IV (15:17)
--- NOTE | 2025-10-02 15:30 | PTCARENOTE ---
Pt feeling much better after receiving Ativan and Toradol. Pt currently OOB in chair. Remains SR with HR 74. BP 100/84 MAP 91. Pulse oximetry 95% on 2L nasal cannula.
--- NOTE | 2025-10-02 20:45 | PTCARENOTE ---
assumed care of pt from previous RN. pt A&Ox4, resting in bed at time of assessment. SR on tele-monitor. temp epicardial v-wires unplugged. pulse generator set to VVI 50/10/0.8. POX 88% on 2 L NC. pt placed on 6 L NC, POX 92-94%. CT x1 (mediastinal)
to -20cm wall suction, draining sanguineous drainage. abd s/n, +BS. pt confirms passing gas. all surgical sites stable, CDI. R IJ Cordis. PIV intact. see worklist for complete nursing assessment, interventions, VS, and I&Os.
[2025-10-02] MEDS: REMOVE LIDOCAINE PATCH REMOVE (21:16)
--- NOTE | 2025-10-02 23:00 | PTCARENOTE ---
report received from previous RN, walking rounds done. pt in bed, sleeping. VSS. NSR on monitor, HR 80s. temp epicardial v-wires in place and unplugged. pulse generator set to VVI 50/10/0.8. +peripheral pulses. B/L breath sounds present. POX 93% on
4LNC. CT x1 intact, set to -20cm wall suction, drainage WNL, no air leak present. abd s/n, +BS. pt voids spontaneously. RIJ cordis in place. PIV intact and patent. all surgical sites stable.
see worklist for full nursing assessment, VS, and interventions.
[2025-10-03] VITALS (21 sets, daily range): BP systolic 89–132; BP diastolic 43–73; PULSE 63–70; O2SAT 84–96; BMI 33.7
--- NOTE | 2025-10-03 04:45 | PTCARENOTE ---
no changes in assessment, VSS. SR 80s. POX 91-93% on 4LNC. IS encouraged. all surgical sites stable. AM labs drawn and sent. pt sleeping between care.
[2025-10-03 05:18] LABS: Hematocrit 25.7 % (37.0-47.0); Hemoglobin 9.0 g/dL (12.0-16.0); Mean Corp Hgb Conc. 35.0 g/dL (33.0-37.0); Mean Corpuscular Volume 94.1 fL (81.0-99.0); Platelet Count 97 10^3/uL (130-400); Red Cell Dist. Width 12.3 % (11.5-14.5)
[2025-10-03 05:22] LABS: Blood Urea Nitrogen 35 mg/dl (7-17); Calcium 8.4 mg/dl (8.4-10.2); Carbon Dioxide 28 mmol/L (22-30); Chloride 102 mmol/L (98-107); Estimated Creatinine Clearance 57 ml/min; Glucose 168 mg/dl (70-99); Magnesium 2.3 mg/dl (1.6-2.3); Potassium 4.7 mmol/L (3.5-5.1); Sodium 132 mmol/L (135-145); eGFR > 60.00
[2025-10-03] MEDS: TYLENOL 975 MG PO ×3 (06:04→22:03)
--- NOTE | 2025-10-03 06:47 | W.PN.CT ---
Today's Communication / Plan
-
-pod #2
-no issues overnight
-med CT output 85/135 in 12/24 hrs
-postop hypotension- improving
-postop bradycardia 50s - resolved, hr 80s overnight. Tolerating Lopressor 12.5 mg bid. Will resume po Amio
-got 20 iv Lasix on 10/02 without significant response (UO 275 cc)
-noted Cardiology input - started Atorvastatin 40 mg for goal LDL < 55.
-Ativan for anxiety
-maintain pw, Cordis
-current meds (Asa, Lipitor, Lopressor, Amio, Ativan, Neurontin, Protonix)
-encourage IS, OOB
Assessment / Plan
-
Assessment:
-S/P Initial right thoracotomy done anteriorly with poor exposure and so converted to mini sternotomy J to the right at the third intercostal space/ Right common femoral artery and vein cutdown/ Surgical aortic valve replacement [25 mm biological
valve/Debridement of large calcium bar onto anterior leaflet of the mitral valve/Reconstruction of chest wall with multiple rib plates and wires, by Dr. Fraire, 10/01/2025, pod#2
-Bicuspid aortic valve morphology with severe stenosis and heavy calcification onto the mitral valve anterior
-LVEF 70-75%, per intraop DANIEL
-HTN
-Osteoporosis
-Class 1 obesity (BMI 33.5)
-Former tobacco use (quit 40 yrs ago)
-Macular degeneration
-Sinus bradycardia
-Hyponatremia
-S/P R wrist fx repair
-S/P Tonsillectomy
-Acute postop blood loss/Anemia (stable without transfusion)
-Acute postop thrombocytopenia (stable without active bleed)
-Acute postop atelectasis
-Acute postop hypovolemia with subsequent hypervolemia
-Acute postop bradycardia 50s- resolved
Discussed patient care with: Nursing and Care Team
Subjective
Procedure
S/P Initial right thoracotomy done anteriorly with poor exposure and so converted to mini sternotomy J to the right at the third intercostal space/ Right common femoral artery and vein cutdown/ Surgical aortic valve replacement [25 mm biological
valve/Debridement of large calcium bar onto anterior leaflet of the mitral valve/Reconstruction of chest wall with multiple rib plates and wires, by Dr. Fraire, 10/01/2025
-
Date of Service: October 03, 2025
Objective Data
-
PT 16.4 Sec (11.4-14.6) H 10/02/25 03:12
INR 1.31 10/02/25 03:12
APTT 28.4 Sec (23.4-35.0) 10/01/25 12:13
Vital Signs
Vital Signs
Temp Pulse Resp BP Pulse Ox
98.6 F 82 18 124/59 92
10/03/25 00:09 10/03/25 00:09 10/03/25 00:09 10/03/25 00:09 10/03/25 00:09
CT Intake/Output/Weight
10/02/25 10/02/25 10/03/25
06:59 18:59 06:59
Intake Total 971.1 / 2734.9 85.4 / 95.4 10 / 95.4
Output Total 660 / 1345 460 / 525 65 / 525
Balance 311.1 / 1389.9 -374.6 / -429.6 -55 / -429.6
SaO2: 92
Physical Exam
-
General: Awake, Oriented and AOx3
Cardiovascular: Regular rate & rhythm, No Murmurs, No Rub and No Gallop
Respiratory: Decreased Breath Sounds (at bases, otherwise clear)
Sternum: Stable
Incision: Clean, Dry, Intact and Dressing Intact
Extremities: Other (+trace edema)
Data Reviewed
-
Lab Results: Results Reviewed
Medications: Active Meds Reviewed
Chest X-Ray: Report Reviewed and Image Reviewed
ECG: Report Reviewed and Image Reviewed
--- NOTE | 2025-10-03 07:33 | W.PN.CD ---
Today's Communication / Plan
-
Still not quite ready for diuretics this morning given orthostasis.
Repeat orthostatics after lunch. If orthostatics negative and she is hemodynamically stable, we can try furosemide 40 mg IV x1. She is volume overloaded but not THAT volume overloaded.
Ambulate.
Emphasize incentive spirometry.
Pain control.
Impression / Plan
-
Impression/Plan: 69F with hypertension, hypercholesterolemia, obesity, nonobstructive CAD (trace in the ostium of the circumflex), and severe aortic stenosis presents for mini bio AVR.
Primary drying rack changer: Dr. Lomeli
#Bicuspid aortic valve with severe stenosis
-Chronic, progressive.
-s/p SAVR (#25 Chatterjee Inspiris Resilia aortic valve) by Dr. Fraire on 10/01/2025.
-Pre-LVEF 60% without RWMA, unchanged postop, MG 8 mmHg.
-Cautious continuation on metoprolol.
-Blood pressure remains borderline and she was orthostatic yesterday. Not ready for diuretics this morning. Repeat orthostatics after lunch. If negative and patient is hemodynamically stable, we can try furosemide 40 mg IV x1.
-Pain/chest tube management per CT surgery.
-Incentive spirometry. This must be emphasized.
-Ambulation.
#CAD
-Chronic, nonobstructive (trace in the ostium of the circumflex).
-Aggressive primary prevention including metoprolol. Start atorvastatin 40 mg daily. Goal LDL < 55.
#Hypertension
-Chronic, currently occasionally hypotensive.
-Resume medical management as hemodynamics will permit.
-Tolerating metoprolol 12.5 mg.
#Former tobacco use
-Chronic, full cessation recommended.
Subjective/Interval History:
MSK pain and anxiety yesterday treated with ketorolac and lorazepam with good effect. She is much more comfortable today.
Given furosemide 20 mg IV with no response.
Orthostatic when she worked with cardiac rehab.
SaO2 = 91-93% on 4LNC.
Weight stable (86.3 < -- 86.1 kg), up 3 kg from baseline.
DATA:
SAVR, 10/01/2025:
Procedure(s) Performed:
1. Initial right thoracotomy done anteriorly with poor exposure and so converted to mini sternotomy J to the right at the third intercostal space
2. Right common femoral artery and vein cutdown
3. Open Seldinger technique cannulation under DANIEL guidance
4. Surgical aortic valve replacement [25 mm biological valve
5. Debridement of large calcium bar onto anterior leaflet of the mitral valve
6. Reconstruction of chest wall with multiple rib plates and wires
7. Placement of temporary ventricular pacing wire
Physical Exam
Vital Signs/Labs
Vital Signs
Temp Pulse Resp BP Pulse Ox
36.9 C 82 18 105/53 92
10/03/25 04:37 10/03/25 04:37 10/03/25 04:37 10/03/25 04:37 10/03/25 04:37
10/01/25 10/02/25 10/03/25
11:59 11:59 11:59
Actual Weight 83.3 kg 86.1 kg 86.3 kg
10/03/25 04:41
10/03/25 04:41
PT 16.4 Sec (11.4-14.6) H 10/02/25 03:12
INR 1.31 10/02/25 03:12
APTT 28.4 Sec (23.4-35.0) 10/01/25 12:13
Magnesium 2.3 mg/dl (1.6-2.3) 10/03/25 04:41
Physical Exam
Constitutional: No acute distress and Comfortable
EENT: Anicteric and Moist mucous membranes
Cardiovascular: Rhythm & rate is regular, Pedal edema is absent, JVD pressure is normal, S1S2 is normal and Murmur/rub/gallop absent
Respiratory: Respiratory effort normal and Other (Decreased at bases.)
GI: Soft, Distention absent, Flat, Non tender and Normal bowel sounds
Neuro/Psych: AO x 3
Data Reviewed
-
Date of Service: October 03, 2025
Medical Decision Making: Reviewed Test Results, Independent Historian Assessment and Test Interpretation
EKG: Tracing Personally Visualized and interpreted and Report Reviewed by me
Echo: Report Reviewed by me
X-Ray/CT/US/MRI/NUC/PET: Image Personally Visualized and interpreted and Report Reviewed by me
Medical Tests (PFT, Pathology etc): Report Reviewed by me
Labs: Labs Reviewed by me
Old Records: Reviewed
[2025-10-03] MEDS: PROTONIX 40 MG PO (07:36)
[2025-10-03] MEDS: SENOKOT 8.6 MG PO ×2 (07:36→19:28)
[2025-10-03] MEDS: VITAMIN D3 (cholecalciferol) 50 MCG PO (07:36)
[2025-10-03] MEDS: LOW STRENGTH ASPIRIN 81 MG PO (07:36)
[2025-10-03] MEDS: MAGNESIUM OXIDE 400 MG PO ×2 (07:36→19:28)
[2025-10-03] MEDS: NEURONTIN 100 MG PO ×3 (07:36→22:04)
[2025-10-03] MEDS: PACERONE 200 MG PO ×3 (07:36→22:04)
[2025-10-03] MEDS: ATIVAN 0.5 MG PO ×2 (07:36→19:28)
[2025-10-03] MEDS: BACTROBAN 2% OINTMENT 1 APPLIC NASAL ×2 (07:37→20:30)
[2025-10-03] MEDS: LIDOCAINE 4% PATCH TOPICAL (07:38)
--- NOTE | 2025-10-03 08:30 | PTCARENOTE ---
Received pt from shift supervisor melting RN at 0700; pt AAOx3 and resting comfortably in chair; NSR PACs on monitor and VSS; Epicardial V wires insulated; Lungs diminished; IS to 1000; CT x1 to -20 wall suction no air leak and no crepitus noted; positive bowel
sounds; pt voiding yellow urine; trace generalized edema noted; palpable pulses throughout; all surgical sites C/D?I; see nursing documentation for further details.
[2025-10-03] MEDS: LOPRESSOR 12.5 MG PO ×2 (08:46→19:28)
[2025-10-03] MEDS: CORDARONE 103 MG IV (08:46)
[2025-10-03] MEDS: CORDARONE 259 MG IV ×2 (10:02→18:50)
--- NOTE | 2025-10-03 10:14 | PTCARENOTE ---
Pt in A-fib at 0855; Amiodarone Bolus and Drip started per CTNP order; New IV #22 in left forearm; NSR with PACs on monitor and VSS.
--- NOTE | 2025-10-03 11:44 | PTCARENOTE ---
NSR on monitor and VSS; pt worked with cardiac rehab; assessment unchanged; Amiodarone infusing see flow sheet for details; pt resting comfortably in chair and family at bedside.
--- NOTE | 2025-10-03 13:50 | PTCARENOTE ---
Mediastinal Chest tube X1 removed and RIJ Cordis removed per CTNP order.
[2025-10-03] MEDS: NSS IV (14:17)
[2025-10-03] MEDS: LIPITOR 40 MG PO (16:24)
--- NOTE | 2025-10-03 20:00 | PTCARENOTE ---
Received pt from day shift RN at 1900; Patient AAOx3 and OOB in chair; Sinus Rhythm on monitor, palpable pulses throughout, vital signs stable,V wires insulated; Lungs Sounds diminished, , CT sites CDI,bowel sounds present ; pt ambulated to
bathroom with 1 person assist, voiding yellow urine; all surgical sites C/D/I; see nursing documentation for full assessment details.
[2025-10-03] MEDS: REMOVE LIDOCAINE PATCH 1 PATCH REMOVE (22:07)
[2025-10-04] VITALS (11 sets, daily range): BP systolic 95–121; BP diastolic 65–91; PULSE 111; O2SAT 95; BMI 34.0
--- NOTE | 2025-10-04 00:03 | PTCARENOTE ---
patient resting, Vitals stable, afib on monitor, on amino drip, denies pain, call light within reach. assessment data remains unchanged.
--- NOTE | 2025-10-04 01:55 | W.PN.CT ---
Today's Communication / Plan
-
-pod #3
-no significant issues overnight
-drips: Amio 0.5
-new paroxysmal a-fib 90s-120s- got Amio bolus and drip. Increased Lopressor to 25 mg bid. Continue po Amio
-Cordis was dcd 10/03 (non-functional)
-postop hypotension and darius- improved
-maintain pw
-follow platelets (97K on 10/03, 112 on 10/02)
-labs pending
-current meds (Asa, Lipitor, Lopressor, Amio, Ativan, Neurontin, Protonix)
-encourage IS, OOB
Assessment / Plan
-
Assessment:
-S/P Initial right thoracotomy done anteriorly with poor exposure and so converted to mini sternotomy J to the right at the third intercostal space/ Right common femoral artery and vein cutdown/ Surgical aortic valve replacement [25 mm biological
valve/Debridement of large calcium bar onto anterior leaflet of the mitral valve/Reconstruction of chest wall with multiple rib plates and wires, by Dr. Fraire, 10/01/2025, pod#3
-Bicuspid aortic valve morphology with severe stenosis and heavy calcification onto the mitral valve anterior
-LVEF 70-75%, per intraop DANIEL
-HTN
-Osteoporosis
-Class 1 obesity (BMI 33.5)
-Former tobacco use (quit 40 yrs ago)
-Macular degeneration
-Sinus bradycardia
-Hyponatremia
-S/P R wrist fx repair
-S/P Tonsillectomy
-Acute postop blood loss/Anemia (stable without transfusion)
-Acute postop thrombocytopenia (stable without active bleed)
-Acute postop atelectasis
-Acute postop hypovolemia with subsequent hypervolemia
-Acute postop bradycardia 50s- resolved
-Acute postop paroxysmal a-fib 110s
Discussed patient care with: Nursing and Care Team
Subjective
Procedure
S/P Initial right thoracotomy done anteriorly with poor exposure and so converted to mini sternotomy J to the right at the third intercostal space/ Right common femoral artery and vein cutdown/ Surgical aortic valve replacement [25 mm biological
valve/Debridement of large calcium bar onto anterior leaflet of the mitral valve/Reconstruction of chest wall with multiple rib plates and wires, by Dr. Fraire, 10/01/2025
-
Date of Service: October 04, 2025
Objective Data
-
PT 16.4 Sec (11.4-14.6) H 10/02/25 03:12
INR 1.31 10/02/25 03:12
APTT 28.4 Sec (23.4-35.0) 10/01/25 12:13
Vital Signs
Vital Signs
Temp Pulse Resp BP Pulse Ox
98.4 F 92 20 124/70 96
10/03/25 19:26 10/03/25 22:04 10/03/25 21:38 10/03/25 22:04 10/03/25 21:38
CT Intake/Output/Weight
10/03/25 10/03/25 10/04/25
06:59 18:59 06:59
Intake Total 10 / 95.4 302.8 / 505.8 203 / 505.8
Output Total 285 / 745 660 / 1110 450 / 1110
Balance -275 / -649.6 -357.2 / -604.2 -247 / -604.2
SaO2: 96
Physical Exam
-
General: Awake and AOx3
Cardiovascular: Irregular rate & rhythm, No Murmurs and No Rub
Respiratory: Decreased Breath Sounds
Sternum: Stable
Incision: Clean, Dry and Intact
Extremities: Other (trace edema b/l)
Abdomen: soft, nontender, nondistended, + bowel sounds
Data Reviewed
-
Lab Results: Results Reviewed
Medications: Active Meds Reviewed
Chest X-Ray: Report Reviewed and Image Reviewed
ECG: Report Reviewed and Image Reviewed
[2025-10-04 04:14] LABS: Hematocrit 26.1 % (37.0-47.0); Hemoglobin 8.8 g/dL (12.0-16.0); Mean Corp Hgb Conc. 33.7 g/dL (33.0-37.0); Mean Corpuscular Volume 93.5 fL (81.0-99.0); Platelet Count 114 10^3/uL (130-400); Red Cell Dist. Width 12.1 % (11.5-14.5)
[2025-10-04 04:26] LABS: Blood Urea Nitrogen 23 mg/dl (7-17); Calcium 8.2 mg/dl (8.4-10.2); Carbon Dioxide 30 mmol/L (22-30); Chloride 102 mmol/L (98-107); Estimated Creatinine Clearance 81 ml/min; Glucose 130 mg/dl (70-99); Magnesium 2.3 mg/dl (1.6-2.3); Potassium 4.3 mmol/L (3.5-5.1); Sodium 133 mmol/L (135-145); eGFR > 60.00
--- NOTE | 2025-10-04 04:26 | PTCARENOTE ---
sherman silvestre, labs drawn, amino bolus order for continued Afib, vital signs stable
[2025-10-04] MEDS: CORDARONE 103 MG IV (04:40)
[2025-10-04] MEDS: TYLENOL 975 MG PO ×3 (06:00→21:00)
--- NOTE | 2025-10-04 07:19 | W.PN.CD ---
Today's Communication / Plan
-
Furosemide 40 mg IV x1 and monitor.
Continue rate control for AF.
She will need an outpatient monitor.
Consider anticoagulation, especially if AF goes > 24 hours.
Incentive spirometry.
Ambulation.
Impression / Plan
-
Impression/Plan: 69F with hypertension, hypercholesterolemia, obesity, nonobstructive CAD (trace in the ostium of the circumflex), and severe aortic stenosis presents for mini bio AVR.
Primary gas collection system operator: Dr. Lomeli
#Bicuspid aortic valve with severe stenosis
-Chronic, progressive.
-s/p SAVR (#25 Chatterjee Inspiris Resilia aortic valve) by Dr. Fraire on 10/01/2025.
-Pre-LVEF 60% without RWMA, unchanged postop, MG 8 mmHg.
-Cautious continuation on metoprolol.
-Pain/chest tube management per CT surgery.
-Incentive spirometry. This must be emphasized.
-Ambulation.
-Furosemide 40 mg IV x1 and monitor response.
#Atrial fibrillation
-New diagnosis.
-Likely post op.
-Rate/rhythm control with metoprolol and amiodarone.
-CHADS2-Vasc = 3 (HTN, Age x1, Female).
-Consider anticoagulation if safe from a surgical perspective (especially if AF goes > 24 hours.
-She will likely need a monitor at discharge to discern if this is true paroxysmal atrial fibrillation or post-operative atrial fibrillation.
#Hyponatremia
-Acute, mild.
-Consistent with volume overload.
-Monitor with diuresis.
#CAD
-Chronic, nonobstructive (trace in the ostium of the circumflex).
-Aggressive primary prevention including metoprolol. Start atorvastatin 40 mg daily. Goal LDL < 55.
#Hypertension
-Chronic, currently occasionally hypotensive.
-Resume medical management as hemodynamics will permit.
-Tolerating metoprolol 12.5 mg.
#Former tobacco use
-Chronic, full cessation recommended.
Subjective/Interval History:
Weight up 0.7 kg from yesterday.
BP better.
SaO2 = 98% on 4LNC.
Na down to 133.
Chest tubes removed.
Patient has lapsed into AF with HR ~ 100-120.
DATA:
SAVR, 10/01/2025:
Procedure(s) Performed:
1. Initial right thoracotomy done anteriorly with poor exposure and so converted to mini sternotomy J to the right at the third intercostal space
2. Right common femoral artery and vein cutdown
3. Open Seldinger technique cannulation under DANIEL guidance
4. Surgical aortic valve replacement [25 mm biological valve
5. Debridement of large calcium bar onto anterior leaflet of the mitral valve
6. Reconstruction of chest wall with multiple rib plates and wires
7. Placement of temporary ventricular pacing wire
Physical Exam
Vital Signs/Labs
Vital Signs
Temp Pulse Resp BP Pulse Ox
36.8 C 120 20 124/73 98
10/04/25 06:55 10/04/25 06:55 10/04/25 06:55 10/03/25 22:06 10/04/25 06:55
10/02/25 10/03/25 10/04/25
11:59 11:59 11:59
Actual Weight 86.1 kg 86.3 kg 87 kg
10/04/25 03:39
10/04/25 03:39
PT 16.4 Sec (11.4-14.6) H 10/02/25 03:12
INR 1.31 10/02/25 03:12
APTT 28.4 Sec (23.4-35.0) 10/01/25 12:13
Magnesium 2.3 mg/dl (1.6-2.3) 10/04/25 03:39
Physical Exam
Constitutional: No acute distress and Comfortable
EENT: Anicteric and Moist mucous membranes
Cardiovascular: Pedal edema is absent, JVD pressure is normal, Pedal edema present, S1S2 is normal and Murmur/rub/gallop absent
Respiratory: Respiratory effort normal, Wheeze Absent, Rhonchi Absent, Crackles Present (Left lower lobe.) and Other (Tubular breath sounds in the RLL.)
GI: Soft, Distention absent, Flat, Non tender and Normal bowel sounds
Neuro/Psych: AO x 3
Data Reviewed
-
Date of Service: October 04, 2025
Medical Decision Making: Reviewed Test Results, Independent Historian Assessment and Test Interpretation
EKG: Tracing Personally Visualized and interpreted and Report Reviewed by me
Echo: Report Reviewed by me
X-Ray/CT/US/MRI/NUC/PET: Image Personally Visualized and interpreted and Report Reviewed by me
Medical Tests (PFT, Pathology etc): Image Personally Visualized and interpreted and Report Reviewed by me
Labs: Labs Reviewed by me
Old Records: Reviewed
[2025-10-04] MEDS: ATIVAN 0.5 MG PO ×2 (07:44→20:42)
[2025-10-04] MEDS: VITAMIN D3 (cholecalciferol) 50 MCG PO (07:44)
[2025-10-04] MEDS: NEURONTIN 100 MG PO (07:44)
[2025-10-04] MEDS: SENOKOT 8.6 MG PO ×2 (07:44→20:46)
[2025-10-04] MEDS: LOPRESSOR 25 MG PO ×2 (07:44→20:45)
[2025-10-04] MEDS: PACERONE 200 MG PO ×3 (07:44→21:01)
[2025-10-04] MEDS: LOW STRENGTH ASPIRIN 81 MG PO (07:44)
[2025-10-04] MEDS: PROTONIX 40 MG PO (07:44)
[2025-10-04] MEDS: MAGNESIUM OXIDE 400 MG PO ×2 (07:44→20:45)
[2025-10-04] MEDS: BACTROBAN 2% OINTMENT 1 APPLIC NASAL ×2 (07:46→20:45)
[2025-10-04] MEDS: LIDOCAINE 4% PATCH TOPICAL (07:49)
[2025-10-04] MEDS: LASIX 40 MG IV (08:57)
--- NOTE | 2025-10-04 09:24 | PTCARENOTE ---
Received pt from night RN; pt AAOx3 and resting comfortably in chair; A-fib on monitor and VSS; Epicardial V wire insulated; Amiodarone infusing see flow sheet for details; PIV infiltrated IV team in room and placed new IV; PICC line ordered by
CTNP; Lungs diminished with fine crackles in left lower lobe; IS to 1000; positive bowel sounds; pt voiding yellow urine; palpable pulses throughout; trace lower extremity edema noted; all surgical sites C/D/I; see nursing documentation for further
details.
--- NOTE | 2025-10-04 10:06 | CM ---
dc plans remain home when medically stable. pt agreeable to a f/u visit from the ct transitional care nurse after dc .
[2025-10-04] MEDS: CORDARONE 259 MG IV ×2 (10:14→23:29)
--- NOTE | 2025-10-04 12:24 | PTCARENOTE ---
A-fib on monitor and VSS; Amiodarone infusing see flow sheet for details; assessment unchanged; IV team RN in with pt and PICC placed; pt resting comfortably with family at bedside.
[2025-10-04] MEDS: NSS IV (16:06)
[2025-10-04] MEDS: LIPITOR 40 MG PO (16:06)
--- NOTE | 2025-10-04 16:07 | CM ---
priced maia with pts pts [facility] (#[phone])-it is a tier 3 medication- her monthly cost is $146. she is aware that her deductible will restart in [facility]. i put a free 30 day coupon in her red dc folder.
[2025-10-04] MEDS: REMOVE LIDOCAINE PATCH 1 PATCH REMOVE (20:46)
--- NOTE | 2025-10-04 21:00 | PTCARENOTE ---
Report received from TOMASZ Rodriguez. Walking rounds done. Pt assessed and VS done. Pt sitting in chair. Awake, alert, oriented x 4. Speech clear. Equal strength x 4. Generalized weakness. 1 RN assist with transfers and walking in room. Pt on 3L/NC. Sats
95-96%. BBS present. Decreased to B bases. IS and flutter valve encouraged. IS peak 1000 mls. Pt in SR. Amiodarone gtt at 0.5 mg/min through R arm PICC line. Metoprolol 25 mg given as scheduled. Pt remains normotensive. Audible heart tones. Surgibra
intact. Sternal and R chest incision CANDELARIO, approximated, slightly bruised, glued. Dressing change to old CT sites and pacing wire site done per protocol. Belly soft, nontender. Normoactive bs x 4. Pt had BM on day shift. Assisted to BR. Pt voiding
clear yellow urine on toilet. Pt brushed teeth. Helped back to bed. CHG bath done. PA into assess pt. Ongoing plan of care.
[2025-10-05] VITALS (9 sets, daily range): BP systolic 89–130; BP diastolic 57–87; PULSE 63; O2SAT 96; BMI 33.9
--- NOTE | 2025-10-05 01:00 | PTCARENOTE ---
Pt called to RN. Helped to BR per request. Voided clear, yellow urine. Pt helped back to bed. Remains in SR. Amio gtt at 0.5 mg/min. Sats on3L/NC are 95-96%. Pt going back to sleep.
--- NOTE | 2025-10-05 03:21 | W.PN.CT ---
Addendum entered and electronically signed by Toby Capone MD 10/05/25 08:47:
I saw and examined the patient.
The PA's note was reviewed and I agree with the note.
Comment:
POD#4 s/p AVR (#25 Inspiris)
Doing well. Back in NSR currently.
Convert to PO amiodarone
Start NOAC
Check 2-view CXR
Hopefully D/C tomorrow
Original Note:
Today's Communication / Plan
-
-pod #4
-looks and feels better overall
-drips: Amio 0.5
-converted from a-fib to nsr @ 14:30 on 10/04. Lopressor was increased to 25 bid
-labs pending
-encouraged IS ([id number] so far), does acapella
-wean off O2 as tolerated - pOx 95% on 3L
-diuresed with 40 iv Lasix on 10/04 - UO 550/1700 in 12/24 hrs
-follow 2v-CXR
-noted Cardiology recommendation for heart monitor and anticoagulation (CM priced Eliquis at $146/mon)
-OOB, ambulate
-possible d/c soon
-appreciate everyone's input
Assessment / Plan
-
Assessment:
-S/P Initial right thoracotomy done anteriorly with poor exposure and so converted to mini sternotomy J to the right at the third intercostal space/ Right common femoral artery and vein cutdown/ Surgical aortic valve replacement [25 mm biological
valve/Debridement of large calcium bar onto anterior leaflet of the mitral valve/Reconstruction of chest wall with multiple rib plates and wires, by Dr. Fraire, 10/01/2025, pod#4
-Bicuspid aortic valve morphology with severe stenosis and heavy calcification onto the mitral valve anterior
-LVEF 70-75%, per intraop DANIEL
-HTN
-Osteoporosis
-Class 1 obesity (BMI 33.5)
-Former tobacco use (quit 40 yrs ago)
-Macular degeneration
-Sinus bradycardia
-Hyponatremia
-S/P R wrist fx repair
-S/P Tonsillectomy
-Acute postop blood loss/Anemia (stable without transfusion)
-Acute postop thrombocytopenia (stable without active bleed)
-Acute postop atelectasis
-Acute postop hypovolemia with subsequent hypervolemia
-Acute postop bradycardia 50s- resolved
-Acute postop paroxysmal a-fib 110s- converted after Amio bolus x2 and drip
Discussed patient care with: Nursing and Care Team
Subjective
Procedure
S/P Initial right thoracotomy done anteriorly with poor exposure and so converted to mini sternotomy J to the right at the third intercostal space/ Right common femoral artery and vein cutdown/ Surgical aortic valve replacement [25 mm biological
valve/Debridement of large calcium bar onto anterior leaflet of the mitral valve/Reconstruction of chest wall with multiple rib plates and wires, by Dr. Fraire, 10/01/2025
-
Date of Service: October 05, 2025
Objective Data
-
PT 16.4 Sec (11.4-14.6) H 10/02/25 03:12
INR 1.31 10/02/25 03:12
APTT 28.4 Sec (23.4-35.0) 10/01/25 12:13
Vital Signs
Vital Signs
Temp Pulse Resp BP Pulse Ox
99.3 F 73 16 121/68 95
10/04/25 20:30 10/04/25 21:01 10/04/25 20:30 10/04/25 21:01 10/04/25 20:30
CT Intake/Output/Weight
10/04/25 10/04/25 10/05/25
06:59 18:59 06:59
Intake Total 568 / 870.8 16.7 / 16.7
Output Total 1050 / 1710 1150 / 1700 550 / 1700
Balance -482 / -839.2 -1150 / -1683.3 -533.3 / -1683.3
SaO2: 95
Physical Exam
-
General: Awake and AOx3
Cardiovascular: Regular rate & rhythm, No Murmurs and No Rub
Respiratory: Rales (at bases. No wheeze)
Sternum: Stable
Incision: Clean, Dry and Intact
Extremities: Other (trace edema b/l)
Abdomen: soft, nontender, nondistended, + bowel sounds
Data Reviewed
-
Lab Results: Results Reviewed
Medications: Active Meds Reviewed
Chest X-Ray: Report Reviewed and Image Reviewed
ECG: Report Reviewed and Image Reviewed
--- NOTE | 2025-10-05 05:10 | PTCARENOTE ---
Labs drawn and sent. VS done. No c/o pain, Amiodarone gtt infusing at 0.5 mg/min. Pt remains in SR.
[2025-10-05 05:35] LABS: Blood Urea Nitrogen 19 mg/dl (7-17); Calcium 8.0 mg/dl (8.4-10.2); Carbon Dioxide 33 mmol/L (22-30); Chloride 99 mmol/L (98-107); Estimated Creatinine Clearance 95 ml/min; Glucose 122 mg/dl (70-99); Magnesium 2.4 mg/dl (1.6-2.3); Potassium 3.8 mmol/L (3.5-5.1); Sodium 135 mmol/L (135-145); eGFR > 60.00
[2025-10-05] MEDS: TYLENOL 975 MG PO ×3 (06:09→21:16)
[2025-10-05 06:15] LABS: Hematocrit 25.2 % (37.0-47.0); Hemoglobin 8.6 g/dL (12.0-16.0); Mean Corp Hgb Conc. 34.1 g/dL (33.0-37.0); Mean Corpuscular Volume 95.1 fL (81.0-99.0); Platelet Count 129 10^3/uL (130-400); Red Cell Dist. Width 12.0 % (11.5-14.5)
--- NOTE | 2025-10-05 06:22 | PTCARENOTE ---
Pt assisted to BR to void 300 mls clear, yellow urine. Pt then helped to recliner chair. Labs redrawn and sent via peripheral IV stick to L arm. Remains in SR, rate 69 bpm. Amio gtt remains at 0.5 mg/min.
[2025-10-05 06:31] LABS: Blood Urea Nitrogen 19 mg/dl (7-17); Calcium 8.0 mg/dl (8.4-10.2); Carbon Dioxide 34 mmol/L (22-30); Chloride 99 mmol/L (98-107); Estimated Creatinine Clearance 81 ml/min; Glucose 122 mg/dl (70-99); Magnesium 2.4 mg/dl (1.6-2.3); Potassium 4.0 mmol/L (3.5-5.1); Sodium 135 mmol/L (135-145); eGFR > 60.00
--- NOTE | 2025-10-05 07:30 | PTCARENOTE ---
Assumed care of patient from warehouse worker 2nd shift RN. AAO x 3 Sitting up in chair. SR on monitor. Epicardial wire insulated. Received on 3 L NC 96%, able to wean to Room air 95% IS to 1500. Abdomen soft and non tender. Surgical sites c,d,i. Pulses
palpable. IV Amiodarone discontinued, Picc Line flushed, good blood return in both lumens. Plan for day discussed.
[2025-10-05] MEDS: BACTROBAN 2% OINTMENT 1 APPLIC NASAL (08:09)
[2025-10-05] MEDS: MUCINEX 600 MG PO ×2 (08:09→20:48)
[2025-10-05] MEDS: ATIVAN 0.5 MG PO ×2 (08:09→20:48)
[2025-10-05] MEDS: MAGNESIUM OXIDE PO ×2 (08:09→20:48)
[2025-10-05] MEDS: PROTONIX 40 MG PO (08:09)
[2025-10-05] MEDS: SENOKOT 8.6 MG PO (08:09)
[2025-10-05] MEDS: PACERONE 200 MG PO ×3 (08:09→21:18)
[2025-10-05] MEDS: LOW STRENGTH ASPIRIN 81 MG PO (08:09)
[2025-10-05] MEDS: LOPRESSOR 25 MG PO ×2 (08:09→20:51)
[2025-10-05] MEDS: VITAMIN D3 (cholecalciferol) 50 MCG PO (08:09)
[2025-10-05] MEDS: TORADOL 15 MG IV (09:22)
[2025-10-05] MEDS: ELIQUIS 5 MG PO ×2 (09:36→20:48)
--- NOTE | 2025-10-05 10:49 | W.PN.CD ---
Today's Communication / Plan
-
start eliquis today
Impression / Plan
-
Impression/Plan: 69F with hypertension, hypercholesterolemia, obesity, nonobstructive CAD (trace in the ostium of the circumflex), and severe aortic stenosis presents for mini bio AVR.
Primary wind up worker: Dr. Lomeli
#Bicuspid aortic valve with severe stenosis
-s/p SAVR (#25 Chatterjee Inspiris Resilia aortic valve) by Dr. Fraire on 10/01/2025.
-Pre-LVEF 60% without RWMA, unchanged postop, MG 8 mmHg.
-continuation on metoprolol post op
#Atrial fibrillation
-New diagnosis. Post op, paroxysmal, and back in sinus
-Likely post op.
-Rate/rhythm control with metoprolol and amiodarone.
-CHADS2-Vasc = 3 (HTN, Age x1, Female).
-eliquis 5mg bid started today
-She will likely need a monitor at discharge to discern if this is true paroxysmal atrial fibrillation or post-operative atrial fibrillation.
#CAD
-Chronic, nonobstructive (trace in the ostium of the circumflex).
-Aggressive primary prevention including metoprolol. Started atorvastatin 40 mg daily. Goal LDL < 55.
#Hypertension
-Chronic, currently occasionally hypotensive.
-Resume medical management as hemodynamics will permit.
-Tolerating metoprolol 12.5 mg.
#Former tobacco use
-Chronic, full cessation recommended
DATA:
SAVR, 10/01/2025:
Procedure(s) Performed:
1. Initial right thoracotomy done anteriorly with poor exposure and so converted to mini sternotomy J to the right at the third intercostal space
2. Right common femoral artery and vein cutdown
3. Open Seldinger technique cannulation under DANIEL guidance
4. Surgical aortic valve replacement [25 mm biological valve
5. Debridement of large calcium bar onto anterior leaflet of the mitral valve
6. Reconstruction of chest wall with multiple rib plates and wires
7. Placement of temporary ventricular pacing wire
Physical Exam
Vital Signs/Labs
Vital Signs
Temp Pulse Resp BP Pulse Ox
98.3 F 72 18 124/87 95
10/05/25 08:00 10/05/25 09:30 10/05/25 08:00 10/05/25 09:19 10/05/25 10:00
10/04/25 10/05/25 10/06/25
06:59 06:59 06:59
Actual Weight 87 kg 86.7 kg
10/05/25 06:00
10/05/25 06:00
PT 16.4 Sec (11.4-14.6) H 10/02/25 03:12
INR 1.31 10/02/25 03:12
APTT 28.4 Sec (23.4-35.0) 10/01/25 12:13
Magnesium 2.4 mg/dl (1.6-2.3) H 10/05/25 06:00
Physical Exam
Constitutional: No acute distress and Comfortable
EENT: Moist mucous membranes
Cardiovascular: Rhythm & rate is regular, Pedal edema is absent, JVD pressure is normal and Systolic murmur absent
Respiratory: Respiratory effort normal and Lungs clear to auscul.
Neuro/Psych: AO x 3
Data Reviewed
-
Date of Service: October 05, 2025
EKG: Other (Tele: A fib --> NSR)
Labs: Labs Reviewed by me
[2025-10-05] MEDS: NSS IV (10:56)
--- NOTE | 2025-10-05 11:40 | PTCARENOTE ---
Ambulating in room w/o difficulty. Pt able to produce a very large BM w/o issue. Pain well managed at present. remains on room air 94%. Assessment otherwise unchanged from prior.
[2025-10-05] MEDS: LIPITOR 40 MG PO (16:35)
--- NOTE | 2025-10-05 17:00 | PTCARENOTE ---
Resting in bed w/o complaint. VSS, remains on room air 92%, Using IS independently,. Assessment otherwise unchanged from prior.
--- NOTE | 2025-10-05 20:00 | PTCARENOTE ---
Assumed care of the patient at 1900. Patient in bed, AOx3, slightly anxious. SR on CM, rates 70's, pulses palpable, trace LE edema, v wire insulated, heart tones audible. Lungs dim at the bases on RA, harsh, moist, occasional cough. BM today, BS
normoactive, abdomen SNT, obese; voiding into the toilet without difficulty, urine clear yellow. MS and lateral CW incisions [employer] CDI; R groin site [employer] CDI, tender; L anterior forearm amiodarone infiltration site improved per patient, TTP, slightly
firm. RUE double lumen PICC with good blood return, INT. Pt reported using her arms to adjust herself in the chair earlier in the day and states now her chest was quite sore in the L breast area; CVNP made aware - incisions CDI as stated, monitor
pain levels/sternal precautions reinforced. Tramadol for moderate pain 5/10. Patient updated on POC, in agreement, call [email or web address] within reach, assessment of needs ongoing.
[2025-10-05] MEDS: SENOKOT PO (20:56)
[2025-10-05] MEDS: REMOVE LIDOCAINE PATCH REMOVE (20:56)
[2025-10-05] MEDS: ULTRAM 50 MG PO (21:18)
[2025-10-06] VITALS (9 sets, daily range): BP systolic 106–134; BP diastolic 57–82; BMI 33.8
--- NOTE | 2025-10-06 00:20 | PTCARENOTE ---
Pt sleeping soundly but aroused to voice - 88% on room air. Placed on 2LNC, satting 94-95% - CVNP made aware. No additional needs assessed at this time. VS otherwise stable.
--- NOTE | 2025-10-06 04:20 | PTCARENOTE ---
VSS. Patient sleeping between care, labs drawn and sent, call mcmahon within reach. NC reduced to 1LPM satting 94%+
[2025-10-06 04:48] LABS: Hematocrit 24.0 % (37.0-47.0); Hemoglobin 8.1 g/dL (12.0-16.0); Mean Corp Hgb Conc. 33.8 g/dL (33.0-37.0); Mean Corpuscular Volume 94.1 fL (81.0-99.0); Platelet Count 144 10^3/uL (130-400); Red Cell Dist. Width 12.0 % (11.5-14.5)
[2025-10-06 05:15] LABS: Blood Urea Nitrogen 27 mg/dl (7-17); Calcium 8.0 mg/dl (8.4-10.2); Carbon Dioxide 31 mmol/L (22-30); Chloride 100 mmol/L (98-107); Estimated Creatinine Clearance 71 ml/min; Glucose 105 mg/dl (70-99); Magnesium 2.4 mg/dl (1.6-2.3); Potassium 3.9 mmol/L (3.5-5.1); Sodium 134 mmol/L (135-145); eGFR > 60.00
[2025-10-06] MEDS: TYLENOL 975 MG PO ×3 (06:12→20:12)
--- NOTE | 2025-10-06 06:18 | W.PN.CT ---
Addendum entered and electronically signed by Toby Capone MD 10/06/25 10:50:
I saw and examined the patient.
The PA's note was reviewed and I agree with the note.
Comment:
POD#5
Doing well. Unfortunately back in rate-controlled AF.
Cardiology planning on attempt at cardioversion tomorrow - repeat amio bolus/gtt today
Continue Eliquis (vs. change to Pradaxa based on cost)
OOB/IS/ambulate
Hopefully tomorrow after attempt at DCCV
Original Note:
Today's Communication / Plan
-
-pod #5
-no overnight issues, maintained in NSR
-wean off O2 as tolerated - off O2 during the day but placed on 2 L overnight
-noted Cardiology recommendation for heart monitor and anticoagulation ( priced Eliquis at $146/month)
-continue amio, asa, atorvastatin, metoprolol 25 mg, Eliquis
-OOB, ambulate
-possible d/c soon
Assessment / Plan
-
Assessment:
-S/P Initial right thoracotomy done anteriorly with poor exposure and so converted to mini sternotomy J to the right at the third intercostal space/ Right common femoral artery and vein cutdown/ Surgical aortic valve replacement [25 mm biological
valve/Debridement of large calcium bar onto anterior leaflet of the mitral valve/Reconstruction of chest wall with multiple rib plates and wires, by Dr. Fraire, 10/01/2025, pod#5
-Bicuspid aortic valve morphology with severe stenosis and heavy calcification onto the mitral valve anterior
-LVEF 70-75%, per intraop DANIEL
-HTN
-Osteoporosis
-Class 1 obesity (BMI 33.5)
-Former tobacco use (quit 40 yrs ago)
-Macular degeneration
-Sinus bradycardia
-Hyponatremia
-S/P R wrist fx repair
-S/P Tonsillectomy
-Acute postop blood loss/Anemia (stable without transfusion)
-Acute postop thrombocytopenia (stable without active bleed)
-Acute postop atelectasis
-Acute postop hypovolemia with subsequent hypervolemia
-Acute postop bradycardia 50s- resolved
-Acute postop paroxysmal a-fib 110s- converted after Amio bolus x2 and drip
Subjective
Procedure
S/P Initial right thoracotomy done anteriorly with poor exposure and so converted to mini sternotomy J to the right at the third intercostal space/ Right common femoral artery and vein cutdown/ Surgical aortic valve replacement [25 mm biological
valve/Debridement of large calcium bar onto anterior leaflet of the mitral valve/Reconstruction of chest wall with multiple rib plates and wires, by Dr. Fraire, 10/01/2025
-
Date of Service: October 06, 2025
Objective Data
-
Lab Results
10/06/25 04:28
10/06/25 04:28
PT 16.4 Sec (11.4-14.6) H 10/02/25 03:12
INR 1.31 10/02/25 03:12
APTT 28.4 Sec (23.4-35.0) 10/01/25 12:13
Vital Signs
Vital Signs
Temp Pulse Resp BP Pulse Ox
98 F 64 18 126/64 94
10/06/25 04:18 10/06/25 04:18 10/06/25 04:18 10/06/25 04:18 10/06/25 04:18
CT Intake/Output/Weight
10/05/25 10/05/25 10/06/25
06:59 18:59 06:59
Intake Total 200.4 / 200.4 1080 / 1280 200 / 1280
Output Total 1350 / 2500 500 / 550 50 / 550
Balance -1149.6 / -2299.6 580 / 730 150 / 730
SaO2: 94
Physical Exam
-
General: Awake and Oriented
Cardiovascular: Regular rate & rhythm and No Murmurs
Respiratory: Clear and Equal
Sternum: Stable
Incision: Clean, Dry and Intact
Extremities: No Edema and No Erythema
Data Reviewed
-
Lab Results: Results Reviewed
Medications: Active Meds Reviewed
Chest X-Ray: Report Reviewed
ECG: Report Reviewed
[2025-10-06] MEDS: MUCINEX 600 MG PO ×2 (07:48→20:12)
[2025-10-06] MEDS: PACERONE 200 MG PO ×3 (07:48→20:13)
[2025-10-06] MEDS: ELIQUIS 5 MG PO ×2 (07:48→20:13)
[2025-10-06] MEDS: ATIVAN 0.5 MG PO ×2 (07:48→20:13)
[2025-10-06] MEDS: PROTONIX 40 MG PO (07:48)
[2025-10-06] MEDS: LOW STRENGTH ASPIRIN 81 MG PO (07:48)
[2025-10-06] MEDS: LOPRESSOR 25 MG PO ×2 (07:48→20:13)
[2025-10-06] MEDS: VITAMIN D3 (cholecalciferol) 50 MCG PO (07:49)
[2025-10-06] MEDS: MAGNESIUM OXIDE PO ×2 (07:49→20:13)
[2025-10-06] MEDS: SENOKOT PO ×2 (07:49→20:13)
--- NOTE | 2025-10-06 07:55 | PTCARENOTE ---
Assumed care of patient sitting up in the chair. Denies complaints. Eager to go home today. SR on monitor. Epicardial wire insulated. Room air 93%, using IS independently. Surgical sites c,d,i. Pulses palpable. trace pedal edema appreciated.
Plan for day discussed.
[2025-10-06] MEDS: NSS IV (08:06)
--- NOTE | 2025-10-06 08:32 | PTCARENOTE ---
Pt in afib 100's, feels 'heart pumping'but otherwise asymptomatic. VSS. PA made aware orders obtained
[2025-10-06] MEDS: MAGNESIUM SULFATE 100 IV (08:35)
[2025-10-06] MEDS: LOPRESSOR 2.5 MG IV (08:36)
[2025-10-06] MEDS: KCL 50 IV (08:36)
[2025-10-06] MEDS: CORDARONE 103 MG IV (08:55)
--- NOTE | 2025-10-06 09:05 | W.PN.CD ---
Today's Communication / Plan
-
now back in A fib with RVR, symptomatic
-IV amiodarone 150mg x1 now; then reload with IV drip if remain in A fib
-monitor on tele
Impression / Plan
-
Impression/Plan: 69F with hypertension, hypercholesterolemia, obesity, nonobstructive CAD (trace in the ostium of the circumflex), and severe aortic stenosis presents for mini bio AVR.
Primary pipelayer: Dr. Lomeli
#Bicuspid aortic valve with severe stenosis
-s/p SAVR (#25 Chatterjee Inspiris Resilia aortic valve) by Dr. Fraire on 10/01/2025.
-Pre-LVEF 60% without RWMA, unchanged postop, MG 8 mmHg.
-continue metoprolol
#Atrial fibrillation
-New diagnosis. Post op, paroxysmal
-CHADS2-Vasc = 3 (HTN, Age x1, Female).
-eliquis 5mg bid started 10/05
-on PO amiodarone and metoprolol
-now back in A fib with RVR, symptomatic
-IV amiodarone 150mg x1 now; then reload with IV drip if remain in A fib
-monitor on tele
#CAD
-Chronic, nonobstructive (trace in the ostium of the circumflex).
-Aggressive primary prevention including metoprolol. Started atorvastatin 40 mg daily. Goal LDL < 55.
#Hypertension
-Chronic, currently occasionally hypotensive.
-Resume medical management as hemodynamics will permit.
-Tolerating metoprolol 12.5 mg.
#Former tobacco use
-Chronic, full cessation recommended
DATA:
SAVR, 10/01/2025:
Procedure(s) Performed:
1. Initial right thoracotomy done anteriorly with poor exposure and so converted to mini sternotomy J to the right at the third intercostal space
2. Right common femoral artery and vein cutdown
3. Open Seldinger technique cannulation under DANIEL guidance
4. Surgical aortic valve replacement [25 mm biological valve
5. Debridement of large calcium bar onto anterior leaflet of the mitral valve
6. Reconstruction of chest wall with multiple rib plates and wires
7. Placement of temporary ventricular pacing wire
Physical Exam
Vital Signs/Labs
Vital Signs
Temp Pulse Resp BP Pulse Ox
97.8 F 102 18 119/68 93
10/06/25 07:52 10/06/25 08:36 10/06/25 07:52 10/06/25 08:36 10/06/25 07:56
10/05/25 10/06/25 10/07/25
06:59 06:59 06:59
Actual Weight 86.7 kg 86.5 kg
10/06/25 04:28
10/06/25 04:28
PT 16.4 Sec (11.4-14.6) H 10/02/25 03:12
INR 1.31 10/02/25 03:12
APTT 28.4 Sec (23.4-35.0) 10/01/25 12:13
Magnesium 2.4 mg/dl (1.6-2.3) H 10/06/25 04:28
Physical Exam
Constitutional: No acute distress and Comfortable
EENT: Moist mucous membranes
Cardiovascular: Pedal edema is absent, JVD pressure is normal, Systolic murmur absent and Rhythm/rate is irregular
Respiratory: Respiratory effort normal and Lungs clear to auscul.
Neuro/Psych: AO x 3
Data Reviewed
-
Date of Service: October 06, 2025
EKG: Other (Tele: NSR--> A fib)
Labs: Labs Reviewed by me
--- NOTE | 2025-10-06 09:56 | PTCARENOTE ---
Amio bolus administered along with electrolyte replacement. Remains in A fib 90-100's, BP tolerating. Awaiting Amio infusion from pharmacy.
[2025-10-06] MEDS: CORDARONE 259 MG IV (11:29)
--- NOTE | 2025-10-06 11:36 | PTCARENOTE ---
Amio infusion initiated per MD order at 1130. VSS Remains in A fib. Concerned about possible cardioversion in am. Emotional and educational support provided. Assessment otherwise unchanged from prior
[2025-10-06] MEDS: ANESTHETIC LOZENGE 1 LOZENGE PO (12:48)
[2025-10-06] MEDS: FLEXERIL 5 MG PO (12:48)
--- NOTE | 2025-10-06 13:00 | SUR.OPER ---
PT resting in bed AAOX4 w/ complaints of pain. Afib on monitor amio GTT running; lungs clear 2L @ night; GI and WNL; all surgical incisions CDI; R PICC CDI; see worklist fo detailed assessment
--- NOTE | 2025-10-06 16:36 | PTCARENOTE ---
No change from previous assessment
[2025-10-06] MEDS: LIPITOR 40 MG PO (16:55)
[2025-10-06] MEDS: REMOVE LIDOCAINE PATCH REMOVE (19:27)
[2025-10-06] MEDS: ULTRAM 50 MG PO (20:17)
--- NOTE | 2025-10-06 20:57 | PTCARENOTE ---
Received pt from previous rn. Pt AAOx4. pt c/o incision pain. See MAR. A -fib per tele monitor HR 100s. V wire insulated. +pulses. Trace b/l pedal edema noted. pox 94% on RA. lungs clear, diminished. +bs, pt voiding in bathroom spontaneously. all
surgical sites intact. R DL PICC line intact infusing amio per physicians order. plan of care discussed and questions encouraged. see worklist for full nursing assessment and nursing interventions.
[2025-10-07] VITALS (7 sets, daily range): BP systolic 102–133; BP diastolic 64–93; PULSE 112; O2SAT 95–98; BMI 34.0
[2025-10-07] MEDS: CORDARONE 259 MG IV (00:10)
--- NOTE | 2025-10-07 00:13 | PTCARENOTE ---
pt reassessed. pt resting comfortably in bed. VSS. A-fib per tele monitor HR 80-90s. pox 96% on 2L NC. otherwise assessment remains unchanged
--- NOTE | 2025-10-07 04:00 | PTCARENOTE ---
pt reassessed. VSS. A-fib per tele monitor HR 80s. AM labs obtained. assessment remains unchanged,
--- NOTE | 2025-10-07 04:42 | W.PN.CT ---
Addendum entered and electronically signed by Alec Fraire MD 10/07/25 09:49:
I saw and examined the patient.
The PA's note was reviewed and I agree with the note.
Comment:
Does not feel when she's in afib. Ok eliquis. Would continue for now. IF she's rate controlled, possibility of having her come back in a few weeks for DANIEL CV - she will likely go back into afib in the immediate periop period. Will continue amio load
via PO for now.
Original Note:
Today's Communication / Plan
-
No significant issues overnight�
Currently in rate in controlled�a fib, Cardiology planning to do cardioversion�today�
Current medication regiment�for�afib:�amiodarone�drip, beta cindy, and Eliquis�
Currents meds�Amio,�ASA, atorvastatin, metoprolol�25 mg, Eliquis�
OOB/IS/Ambulate�
Assessment / Plan
-
Assessment:
-S/P Initial right thoracotomy done anteriorly with poor exposure and so converted to mini sternotomy J to the right at the third intercostal space/ Right common femoral artery and vein cutdown/ Surgical aortic valve replacement [25 mm biological
valve/Debridement of large calcium bar onto anterior leaflet of the mitral valve/Reconstruction of chest wall with multiple rib plates and wires, by Dr. Fraire, 10/01/2025, pod#6
-Bicuspid aortic valve morphology with severe stenosis and heavy calcification onto the mitral valve anterior
-LVEF 70-75%, per intraop DANIEL
-HTN
-Osteoporosis
-Class 1 obesity (BMI 33.5)
-Former tobacco use (quit 40 yrs ago)
-Macular degeneration
-Sinus bradycardia
-Hyponatremia
-S/P R wrist fx repair
-S/P Tonsillectomy
-Acute postop blood loss/Anemia (stable without transfusion)
-Acute postop thrombocytopenia (stable without active bleed)
-Acute postop atelectasis
-Acute postop hypovolemia with subsequent hypervolemia
-Acute postop bradycardia 50s- resolved
-Acute postop paroxysmal a-fib 110s- converted after Amio bolus x2 and drip
Subjective
Procedure
S/P Initial right thoracotomy done anteriorly with poor exposure and so converted to mini sternotomy J to the right at the third intercostal space/ Right common femoral artery and vein cutdown/ Surgical aortic valve replacement [25 mm biological
valve/Debridement of large calcium bar onto anterior leaflet of the mitral valve/Reconstruction of chest wall with multiple rib plates and wires, by Dr. Fraire, 10/01/2025
-
Date of Service: October 07, 2025
Objective Data
-
PT 16.4 Sec (11.4-14.6) H 10/02/25 03:12
INR 1.31 10/02/25 03:12
APTT 28.4 Sec (23.4-35.0) 10/01/25 12:13
Vital Signs
Vital Signs
Temp Pulse Resp BP Pulse Ox
98.3 F 88 16 102/64 96
10/07/25 00:16 10/07/25 00:14 10/07/25 00:16 10/07/25 00:14 10/07/25 00:16
CT Intake/Output/Weight
10/06/25 10/06/25 10/07/25
06:59 18:59 06:59
Intake Total 200 / 1280 720 / 720
Output Total 50 / 550 800 / 800
Balance 150 / 730 -80 / -80
SaO2: 96
Physical Exam
-
General: Awake
Cardiovascular: Irregular rate & rhythm
Respiratory: Clear and Equal
Sternum: Stable
Incision: Clean, Dry and Intact
Extremities: No Edema
[2025-10-07] MEDS: TYLENOL 975 MG PO (05:04)
[2025-10-07 05:12] LABS: Blood Urea Nitrogen 20 mg/dl (7-17); Calcium 7.9 mg/dl (8.4-10.2); Carbon Dioxide 30 mmol/L (22-30); Chloride 101 mmol/L (98-107); Estimated Creatinine Clearance 81 ml/min; Glucose 116 mg/dl (70-99); Magnesium 2.3 mg/dl (1.6-2.3); Potassium 4.2 mmol/L (3.5-5.1); Sodium 135 mmol/L (135-145); eGFR > 60.00
[2025-10-07 05:32] LABS: Hematocrit 25.7 % (37.0-47.0); Hemoglobin 8.5 g/dL (12.0-16.0); Mean Corp Hgb Conc. 33.1 g/dL (33.0-37.0); Mean Corpuscular Volume 93.8 fL (81.0-99.0); Platelet Count 194 10^3/uL (130-400); Red Cell Dist. Width 12.1 % (11.5-14.5)
--- NOTE | 2025-10-07 08:00 | PTCARENOTE ---
Received pt from previous rn. Pt AAOx34. A-fib on monitor HR 90-100s. V wire insulated. +pulses. +1 b/l pedal edema noted. pox 94% on RA. lungs clear, diminished. +bs, BRP. all surgical sites intact. PICC line intact infusing amio gtt. NPO for
cardioversion this afternoon.
[2025-10-07] MEDS: PACERONE 200 MG PO (08:33)
[2025-10-07] MEDS: MAGNESIUM OXIDE 400 MG PO (08:33)
[2025-10-07] MEDS: VITAMIN D3 (cholecalciferol) 50 MCG PO (08:33)
[2025-10-07] MEDS: ATIVAN 0.5 MG PO (08:34)
[2025-10-07] MEDS: PROTONIX 40 MG PO (08:34)
[2025-10-07] MEDS: LOPRESSOR 25 MG PO (08:34)
[2025-10-07] MEDS: MUCINEX 600 MG PO (08:34)
[2025-10-07] MEDS: LOW STRENGTH ASPIRIN 81 MG PO (08:34)
[2025-10-07] MEDS: SENOKOT 8.6 MG PO (08:34)
[2025-10-07] MEDS: ELIQUIS 5 MG PO (08:36)
--- NOTE | 2025-10-07 10:18 | W.PN.CD ---
Today's Communication / Plan
-
DCCV.
Maintain therapeutic anticoagulation.
Redose furosemide 40 mg IV x1 after cardioversion.
Impression / Plan
-
Impression/Plan: 69F with hypertension, hypercholesterolemia, obesity, nonobstructive CAD (trace in the ostium of the circumflex), and severe aortic stenosis presents for mini bio AVR.
Primary epic specialist: Dr. Lomeli
#Bicuspid aortic valve with severe stenosis
-Chronic, progressive.
-s/p SAVR (#25 Chatterjee Inspiris Resilia aortic valve) by Dr. Fraire on 10/01/2025.
-Pre-LVEF 60% without RWMA, unchanged postop, MG 8 mmHg.
-Continue metoprolol.
-Weight still above baseline. Furosemide 40 mg IV x1 after cardioversion.
#Atrial fibrillation
-New diagnosis. Post op, paroxysmal.
-Rate control with amiodarone 200 mg TID and metoprolol 25 mg BID. Remains in atrial fibrillation.
-CHADS2-Vasc = 3 (HTN, Age x1, Female).
-Therapeutic anticoagulation with apixaban 5mg bid, started 10/05/2025.
-DC CV this morning now having been loaded with amiodarone.
-She will need an outpatient monitor to establish the nature of her atrial fibrillation (true post op vs. paroxysmal).
#CAD
-Chronic, nonobstructive (trace in the ostium of the circumflex).
-Aggressive primary prevention including metoprolol. Started atorvastatin 40 mg daily. Goal LDL < 55.
#Hypertension
-Chronic, currently occasionally hypotensive.
-Resume medical management as hemodynamics will permit.
-Tolerating metoprolol 25 mg BID.
#Former tobacco use
-Chronic, full cessation recommended.
#Dispo
-Discharge planning (depending on response to DCCV and diuresis).
Subjective/Interval History:
Weight stable, remains above her baseline (87 <-- 83.3).
She has remained in AF since yesterday.
Rate is controlled ~ 90-110.
DATA:
SAVR, 10/01/2025:
Procedure(s) Performed:
1. Initial right thoracotomy done anteriorly with poor exposure and so converted to mini sternotomy J to the right at the third intercostal space
2. Right common femoral artery and vein cutdown
3. Open Seldinger technique cannulation under DANIEL guidance
4. Surgical aortic valve replacement [25 mm biological valve
5. Debridement of large calcium bar onto anterior leaflet of the mitral valve
6. Reconstruction of chest wall with multiple rib plates and wires
7. Placement of temporary ventricular pacing wire
Physical Exam
Vital Signs/Labs
Vital Signs
Temp Pulse Resp BP Pulse Ox
36.6 C 113 18 119/82 94
10/07/25 08:00 10/07/25 08:33 10/07/25 08:00 10/07/25 08:33 10/07/25 08:00
10/05/25 10/06/25 10/07/25
11:59 11:59 11:59
Actual Weight 86.7 kg 86.5 kg 87 kg
10/07/25 04:39
10/07/25 04:39
PT 16.4 Sec (11.4-14.6) H 10/02/25 03:12
INR 1.31 10/02/25 03:12
APTT 28.4 Sec (23.4-35.0) 10/01/25 12:13
Magnesium 2.3 mg/dl (1.6-2.3) 10/07/25 04:39
Physical Exam
Constitutional: No acute distress and Comfortable
EENT: Anicteric and Moist mucous membranes
Cardiovascular: Pedal edema is absent, JVD pressure is normal, Rhythm/rate is irregular, S1S2 is normal and Murmur/rub/gallop absent
Respiratory: Respiratory effort normal, Lungs clear to auscul., Wheeze Absent, Crackles Absent and Rhonchi Absent
GI: Soft, Distention absent, Flat, Non tender and Normal bowel sounds
Neuro/Psych: AO x 3
Data Reviewed
-
Date of Service: October 07, 2025
Medical Decision Making: Reviewed Test Results, Independent Historian Assessment and Test Interpretation
EKG: Tracing Personally Visualized and interpreted and Report Reviewed by me
Echo: Tracing Personally Visualized and interpreted and Report Reviewed by me
X-Ray/CT/US/MRI/NUC/PET: Image Personally Visualized and interpreted and Report Reviewed by me
Medical Tests (PFT, Pathology etc): Image Personally Visualized and interpreted and Report Reviewed by me
Labs: Labs Reviewed by me
Old Records: Reviewed
--- NOTE | 2025-10-07 12:00 | PTCARENOTE ---
sent to [facility] for CV in wheelchair. remains AFIB at this time,
[2025-10-07] MEDS: NSS IV (12:25)
--- NOTE | 2025-10-07 12:27 | PTCARENOTE ---
converted to NSR in CLL. HR 70s.
[2025-10-07] MEDS: LASIX 40 MG IV (13:04)
[2025-10-07] MEDS: TYLENOL PO (13:08)
--- NOTE | 2025-10-07 13:18 | W.DCSUMMARY ---
Discharge Summary
Discharge Data
Date of Admission: 10/01/25
Date of Discharge: 10/07/25
-
Pending Results: No
Hospital Course
Primary care physician: Errol Navarrete
Outpatient effervescent salts compounder: Brandon Lomeli
Inpatient consultants: [facility] Cardiology, pulmonary scheduling assistant
Procedures:
1. aortic valve replacement
2. Cardioversion
Primary Diagnosis:
1. Aortic valve stenosis with heavy calcification of bicuspid Valve morphology
Secondary Diagnoses:
1. HTN
2. Osteoporosis
3. Class 1 obesity (BMI 33.5)
4. Macular degeneration
5. Hyponatremia
6. S/P R wrist fx repair
7. S/P Tonsillectomy
-Acute postop blood loss/Anemia (stable without transfusion)
-Acute postop thrombocytopenia (stable without active bleed)
-Acute postop respiratory insufficiency
-Acute postop hypovolemia with subsequent hypervolemia
-Acute postop bradycardia 50s- resolved
-Acute postop paroxysmal a-fib
HPI: 69year-old female was electively admitted on 10/01/2025 for arctic valve replacement due to bicuspid aortic valve and severe aortic stenosis
Hospital course: Patient was taken to the operating room and underwent aortic valve replacement [25 mm biological valve, debridement of large calcium bar onto anterior leaflet of the mitral valve, reconstruction of chest wall with multiple rib
plates and wires (via initial right thoracotomy done anteriorly with poor exposure and so converted to mini sternotomy J to the right at the third intercostal space) by Dr. Alec Fraire. Postprocedure DANIEL reported an EF of 70 to 75% with no AI,
trace mitral regurgitation and trace tricuspid regurgitation. For further details, please see operative note.Patient required no intraoperative blood products and returned to CVICU on Levophed, Insulin, and Precedex. Patient was extubated 1530,
the day of surgery. She received 1 L of lactated Ringer's and 250 cc albumin and maintenance lactated Ringer's at 50 cc an hour for volume resuscitation. On postoperative day # 1, the [facility] pleural chest tube was removed. Patient was diuresed with
20 mg IV of Lasix. Toradol was started for pain control. On postoperative day #2, the mediastinal chest tube was discontinued. Temporary pacing wires were kept due to presence of atrial fibrillation and c bradycardic rhythm when converting to
sinus. Amiodarone bolus and infusion were initiated. Due to chronic, nonobstructive (trace in the ostium of the circumflex), aggressive primary prevention including metoprolol and atorvastatin were started. Goal LDL < 55. On postoperative day #3,
patient remained in atrial fibrillation and sustained a peripheral IV amiodarone infiltrated. Therefore a right upper extremity PICC was placed. Metoprolol dosage was increased to 25 mg twice daily and patient converted to sinus rhythm at 1430.
On postoperative day #4, DOAC was started. On postoperative day #5, patient was back in rate controlled atrial fibrillation. She was cardioverted to sinus rhythm on postoperative day #6, and diuresed following the procedure with Lasix 40 mg IV.
One temporary bipolar ventricular wire was clipped to skin level. RUE PICC was removed. Labs on day of discharge: WBC 10.3, hemoglobin 8.5, platelets 194K, Sodium 135, potassium 4.2, creatinine 0.7. Patient will be discharged on Amiodarone 200 mg
twice daily x 14 days then 200 mg daily. Losartan was not resumed postoperatively due to low normal blood pressures.
Home medication changes:
Stop Tumeric while on Eliquis
Protonix for GI protection while on Eliquis
Stop Losartan
Amiodarone 200mg twice daily x 14 days then decrease to 200mg daily
Discharge Plan
-
Patient Disposition: Home (Routine Discharge)
Discharge Diagnosis/Procedures: Aortic Valve replacement (tissue) 10/01/25; cardioversion 10/07/25
Condition: Good
Diet: Low Cholesterol and Low Sodium
Activity: No strenuous activity
Driving Restrictions: Not until seen by your Dr
Bathing Restrictions: OK to Shower
Other Services: Cardiac Rehab
Specialty Instructions: Weigh Daily- Call MD for wt gain/loss 3 lbs overnight/5 lbs in 1 week
Referrals:
CT Transitional Care Nurse [Outside]
Referral Note:
The Cardiothoracic Transitional Care Nurse will call you to set up a visit in 1-2 days.
[facility]. Cardiac Rehab [Outside] - 11/05/25 1:00 pm
Referral Note: Cardiac Rehab Orientation appointment is on 11/05/25 at 1:00pm
The Cardiac Rehab gym is located on the first floor of the [facility].
Brandon Lomeli DO [Active, Cardiology] - 12/16/25 9:40 am
Referral Note: This appt is at the [facility] [place].
Errol Navarrete DO [Family Provider, Family Practice]
Alec Fraire MD [Active, Cardiac Surgery] - 11/04/25 2:00 pm
Prescriptions:
New
Eliquis 5 mg Tablet
5 mg PO BID Qty: 60 2RF
atorvastatin 40 mg Tablet
40 mg PO QPM Qty: 30 2RF
acetaminophen 325 mg Tablet
650 mg PO Q4HPRN PRN (Reason: mild pain,headache,temp >101F ) Qty: 0 0RF
cyclobenzaprine 10 mg Tablet
5 mg PO Q8HPRN PRN (Reason: muscle spasm) Qty: 10 0RF
amiodarone 200 mg tablet
200 mg PO BID Qty: 60 1RF
Rx Instructions:
200mg twice a day for 14 days, then 200mg daily
pantoprazole 40 mg Tablet,Delayed Release (Dr/Ec)
40 mg PO DAILY Qty: 30 2RF
tramadol 50 mg Tablet
50 mg PO Q6HPRN PRN (Reason: severe pain) Qty: 20 0RF
Continued
lorazepam 0.5 mg Tablet
0.5 mg PO BID
hydrochlorothiazide 25 mg Tablet
25 mg PO DAILY
metoprolol tartrate 25 mg Tablet
25 mg PO BID
cholecalciferol (vitamin D3) [Vitamin D3] 50 mcg (2,000 unit) Tablet
50 mcg PO DAILY
PreserVision AREDS-2 250-90-40-1 mg Capsule
1 tab PO BID
calcium
3 units PO DAILY
Discontinued
losartan 50 mg Tablet
50 mg PO DAILY
turmeric
3 unit PO DAILY
Discharge Orders:
Discharge Patient (As Directed); Ordered 10/07/25
Ordered By: Grace Han
Care Plan Goals
Care Plan Goals:
Problem: Readiness for enhanced knowledge related to diagnosis and treatment plan
Goal: Understand your diagnosis and treatment plan needs, including medications if applicable.
Instructions: Know your diagnosis, underlying causes and treatment plan options, including medications if applicable. Consult with your health care team to learn about your diagnosis and treatment plan, including medications if applicable.
Discharge Date and Time
Print Language: TAMAZIGHT
== END 2025-10-07 17:53 | disposition home or self-care (01) | DRG 220 ==
LOC: CVICU 05:01
PROVIDERS: Anesthesiology; Clinical Nurse Specialist Acute Care; Nurse Practitioner; Nurse Practitioner Primary Care; Student in an Organized Health Care Education/Training Program; ADMITTING PHYSICIAN Thoracic Surgery (Cardiothoracic Vascular Surgery); CONSULT PHYSICIAN Internal Medicine; CONSULT PHYSICIAN Internal Medicine Critical Care Medicine; FAMILY PHYSICIAN Family Medicine
PROC: B24BZZ4 Ultrasonography of Heart with Aorta, Transesophageal (ICD-10-PCS; 2025-10-01)
PROC: 02BG0ZZ Excision of Mitral Valve, Open Approach (ICD-10-PCS; 2025-10-01)
PROC: 02RF08Z Replacement of Aortic Valve with Zooplastic Tissue, Open Approach (ICD-10-PCS; 2025-10-01)
PROC: 5A1221Z Performance of Cardiac Output, Continuous (ICD-10-PCS; 2025-10-01)
PROC: 02HV33Z Insertion of Infusion Device into Superior Vena Cava, Percutaneous Approach (ICD-10-PCS; 2025-10-04)
PROC: 5A2204Z Restoration of Cardiac Rhythm, Single (ICD-10-PCS; 2025-10-07)
DX: I35.0 Nonrheumatic aortic (valve) stenosis (principal); D62 Acute posthemorrhagic anemia; E87.1 Hypo-osmolality and hyponatremia; D69.59 Other secondary thrombocytopenia; R06.89 Other abnormalities of breathing; E86.1 Hypovolemia; E87.70 Fluid overload, unspecified; R00.1 Bradycardia, unspecified; I48.0 Paroxysmal atrial fibrillation; Q23.81 Bicuspid aortic valve; I95.81 Postprocedural hypotension; I10 Essential (primary) hypertension; M81.0 Age-related osteoporosis without current pathological fracture; I34.81 Nonrheumatic mitral (valve) annulus calcification; H35.30 Unspecified macular degeneration; E66.811 Obesity, class 1; E83.51 Hypocalcemia; R73.9 Hyperglycemia, unspecified; E78.00 Pure hypercholesterolemia, unspecified; I25.10 Atherosclerotic heart disease of native coronary artery without angina pectoris; F41.9 Anxiety disorder, unspecified; Z68.33 Body mass index [BMI] 33.0-33.9, adult; Z87.891 Personal history of nicotine dependence; Z82.49 Family history of ischemic heart disease and other diseases of the circulatory system
CPT/HCPCS: 36415; 71045; 71046; 80048; 80053; 81003; 81015; 82248; 82330; 82565; 82805; 82810; 82947; 82962; 83036; 83735; 84132; 84302; 84520; 85014; 85018; 85025; 85027; 85049; 85610; 85730; 86850; 86900; 86901; 86920; 87070; 88305; 88311; 92960; 93005; 93312; 93320; 93325; 93880; 94002; C1713; J0282; P9045